=== PATIENT | male | born 1975 | race Caucasian/White ===

== ENCOUNTER 2018-05-07 11:15 | Outpatient (CLI) | payer SELFPAY ==
--- NOTE | 2018-05-07 08:57 | DI.RAD_ITS ---
SYMPTOM/DIAGNOSIS: LT SHOULDER PAIN, M25.512 LEFT SHOULDER: Five views. No bone or joint abnormality is identified. The soft tissues are grossly unremarkable. IMPRESSION: No acute abnormality.
== END 2018-05-07 11:35 ==
PROVIDERS: PCP Family Medicine; Visit Provider Family Medicine
DX: M25.512 Pain in left shoulder (principal)
CPT/HCPCS: 73030

== ENCOUNTER 2019-04-08 13:20 | Outpatient (CLI) | payer OTHER, SELFPAY ==
[2019-04-08 15:12] LABS: Anion Gap 11.9 mmol/L (3-11); BUN 18 mg/dL (7-18); CO2 27.1 mmol/L (21.0-32.0); CREATININE 0.95 mg/dL (0.70-1.30); Calcium 9.3 mg/dL (8.5-10.1); Chloride 102 mmol/L (98-107); Glucose 128 mg/dL (74-106); Potassium 4.3 mmol/L (3.5-5.1); Sodium 141 mmol/L (136-145)
== END 2019-04-08 13:40 ==
PROVIDERS: PCP Family Medicine; Visit Provider Emergency Medicine
DX: I10 Essential (primary) hypertension (principal)
CPT/HCPCS: 36415; 80048

== ENCOUNTER 2019-04-27 08:43 | Day surgery (SDC) | payer OTHER, SELFPAY ==
[2019-04-27 08:59] VITALS: BP 141/93; PULSE 77; RESP 18; TEMP 36.2; O2SAT 98
[2019-04-27] MEDS: Lactated Ringers 1,000 ML 80 ML IV (09:20)
[2019-04-27] MEDS: ceFAZolin 2 GM/50 ML BAG IVPB (10:04)
[2019-04-27] MEDS: Lidocaine 1% Multi-Dose 50 ML VIAL (10:12)
[2019-04-27] MEDS: Sodium Bicarbonate 50 MEQ/50 ML VIAL (10:12)
--- NOTE | 2019-04-27 10:33 | PDOC.DSDIS_ITS ---
Discharge Plan Disposition Patient Disposition: HOME Condition: Good Discharge Details Reason For Visit: Left ECTR Attending Provider: Cornell Kyle Primary Care Provider: Ching Cat Home Meds and New Rx's Prescriptions: New ibuprofen 600 mg tablet 600 mg PO TID PRNQty: 30 RF: 0 acetaminophen 500 mg capsule 500 mg PO Q4H PRN (Reason: pain) Qty: 30 RF: 0 Continued lisinopril 20 mg tablet 30 mg PO DAILY Qty: 90 RF: 3 doxycycline monohydrate 100 mg capsule 100 mg PO BID Qty: 60 RF: 3 sertraline 100 mg Tablet 100 mg PO DAILY RF: 0 Discharge Instructions Stand Alone Forms: Anabella Douglas Tunnel Release Referrals: Cornell Kyle MD [ [facility] STAFF PHYSICIAN] - Activity:: Activity as Tolerated Remove Dressings/Wound Care:: 48 hours Shower/Bathe:: 48 hours Diet:: As Tolerated Discharge Orders Discharge Orders: Discharge Order (Routine); Ordered 04/27/19 Ordered By: Benson Allen DS: Diagnosis Discharge Diagnosis (1) Left carpal tunnel syndrome: Status: Acute
[2019-04-27 11:05] VITALS: BP 127/85; PULSE 61; RESP 16; TEMP 36.3; O2SAT 97
--- NOTE | 2019-04-28 07:21 | W.PM.OP ---
Date of service: 04/27/19 Time of Service: 13:22 Operative Note Operative Note DATE OF PROCEDURE: 04/27/19 PRE-OP DIAGNOSIS: Left carpal tunnel syndrome POST-OP DIAGNOSIS: same PROCEDURE: Left Endoscopic Carpal Tunnel Release SURGEON: Cornell Kyle ANESTHESIA: GETDebbie ESTIMATED BLOOD LOSS: 0 PATHOLOGY: none sent TOURNIQUET TIME: 12 COMPLICATIONS: None Patient was transported to: same day Patient's condition: stable Indications: I have seen Philippe in clinic for symptoms of carpal tunnel syndrome. The numbness, tingling, and pain limited function. Clinical exam findings with nerve conduction tests confirmed the diagnosis of carpal tunnel syndrome. Nonoperative measures such as bracing, time, activity modifications had been tried but disability and pain persisted. I discussed carpal tunnel release with the patient. He previously had a release on the right side and did well from this. I reviewed the risks of the procedure to include, but not limited to, bleeding, infection, pain, stiffness, incomplete release, damage to nerves or vessels, persistent numbness, recurrence. Despite these risks, the patient elected to proceed. Findings: There was tightened carpal tunnel. There was significant synovium which was encountered during the carpal tunnel release. This was dilated and released successfully with the endoscopic with increased space within the tunnel. The antebrachial fascia was released proximally freeing the median nerve at the wrist. Procedure Description: Philippe was greeted in the preoperative holding area where the correct side was identified and marked. The consent was reviewed with the patient and signed. The history and physical was updated. All questions were answered. Philippe was taken back to the operating room. The patient was placed into the supine position on the operating room table with the left arm on an arm board. A nonsterile tourniquet was placed high onto the arm. All bony prominences were well padded. Prophylactic antibiotics in the form of cefazolin were administered. The left arm was then prepped with Chloraprep and draped in a standard fashion with stockinette and extremity drape. A timeout to confirm correct identity, side and site, procedure, allergies, anesthesia, and medical concerns was performed. The surgical site was marked in the volar wrist creases in line with the radial border of the fourth ray. This area was anesthetized with approximately 6cc of 1% Lidocaine. The limb was then exsanguinated with an Esmarch. The skin was incised with a 15 blade, approximately 1cm. The skin only was cut and the deeper tissue was dissected bluntly with a tenotomy scissor, avoiding passing nerve and venous structures. The fascia was penetrated and opened bluntly. A two-prong skin hook was placed under this proximal fascial edge. A series of hamate finders were used to identify and dilate the carpal tunnel. Synovial elevator was used to free synovial attachments to the underside of the transverse carpal ligament. My thumb was kept in the palm to tiffany the distal extent of the carpal tunnel and correctly position the hand. The Microaire endoscope was inserted without difficulty and without resistance. Excellent visualization showed horizontally running fibers of the transverse carpal ligament (TCL). The distal extent of the TCL was visualized and the end of the scope palpated with the thumb. The blade was elevated and withdrawn from distal to proximal. The TCL was split into two flaps. The endoscope was reinserted to confirm complete release and any remnant ligament was incised. The scope was withdrawn and the proximal aspect of the carpal tunnel was grossly inspected and appeared release with the median nerve visible. The antebrachial fascia at the level of the wrist was then freed from the overlying skin and then the underlying median nerve with blunt dissection. This was transected longitudinally for about 3cm proximal to the wrist incision. The wound was then irrigated with easy flow of irrigant distally and proximally. The incision was closed with a single 4-0 Nylon suture. The wound was dressed with Xeroform, Gauze, Kerlix and Adelfo. The tourniquet was deflated with the initial dressing and held with some pressure. Blood flow returned easily to all digits with capillary refill less than 2 seconds. The patient tolerated the procedure well and was returned to the Same Day Surgery area in a stable condition suffering no known complication.
== END 2019-04-27 11:43 | disposition home or self-care (01) ==
PROVIDERS: PCP Family Medicine; Visit Provider Student in an Organized Health Care Education/Training Program
PROC: 01N54ZZ Release Median Nerve, Percutaneous Endoscopic Approach (ICD-10-PCS; CPT 29848; principal; 2019-04-27 11:15)
DX: G56.02 Carpal tunnel syndrome, left upper limb (principal)
CPT/HCPCS: 29848; J0690; J1885; J2704

== ENCOUNTER 2019-06-11 10:15 | Day surgery (SDC) | payer OTHER, SELFPAY ==
[2019-06-11 10:30] VITALS: BP 137/93; PULSE 70; RESP 18; TEMP 36.3; O2SAT 98
[2019-06-11] MEDS: Lactated Ringers 1,000 ML 80 ML IV ×2 (10:55→12:43)
[2019-06-11] MEDS: ceFAZolin 2 GM/50 ML BAG IVPB (12:11)
--- NOTE | 2019-06-11 12:14 | PDOC.DSDIS_ITS ---
Discharge Plan Disposition Patient Disposition: HOME Condition: Good Discharge Details Reason For Visit: Left Carpal tunnel Syndrome Attending Provider: Cornell Kyle Primary Care Provider: Ching Cat Home Meds and New Rx's Prescriptions: Continued ibuprofen 600 mg tablet 600 mg PO TID PRNQty: 30 RF: 0 acetaminophen 500 mg capsule 500 mg PO Q4H PRN (Reason: pain) Qty: 30 RF: 0 Discontinued naproxen 500 mg Tablet 500 mg PO PRN PRNRF: 0 No Action sertraline 100 mg tablet 150 mg PO DAILY RF: 0 doxycycline monohydrate 100 mg capsule 100 mg PO BID Qty: 60 RF: 3 lisinopril 20 mg tablet 30 mg PO DAILY Qty: 90 RF: 5 Discharge Instructions Additional Instructions: Activity: You should keep the hand/wrist elevated as much as possible for the fi rst few days. You may use the other fingers as tolerated but avoid trying to do too much too soon. You may perform light activities with the splint in place. Dressing/Cast: Your splint should stay in place most of the time. You may remove the dressings after 3 days and replace with bandaids or a light gauze. The wound may get wet after 3 days. Medications: - You should take Tylenol and Ibuprofen for baseline pain control. - You may apply ice over the wrist, just double bag so it doesn't get wet. Follow-up: 7-10 days Referrals: Cornell Kyle MD [ [facility] STAFF PHYSICIAN] - Equipment/Supplies: Splint and Sling Activity:: Elevate Remove Dressings/Wound Care:: 72 hours Shower/Bathe:: 72 hours Diet:: As Tolerated Discharge Orders Discharge Orders: Discharge Order (Routine); Ordered 06/11/19 Ordered By: Cornell Kyle DS: Diagnosis Discharge Diagnosis (1) Left carpal tunnel syndrome: Status: Acute
[2019-06-11] MEDS: Lidocaine 2% Multi-Dose 50 ML VIAL (12:29)
[2019-06-11 13:50] VITALS: BP 120/75; PULSE 62; RESP 16; TEMP 36; O2SAT 99
--- NOTE | 2019-06-12 07:33 | ROE_ITS ---
Date of service: 06/11/19 Time of Service: 13:33 Operative Note Operative Note DATE OF PROCEDURE: 06/11/19 PRE-OP DIAGNOSIS: Left Carpal Tunnel Syndrome POST-OP DIAGNOSIS: same PROCEDURE: Left Open Carpal Tunnel Release SURGEON: Cornell Kyle ANESTHESIA: GETDebbie ESTIMATED BLOOD LOSS: 0 PATHOLOGY: none sent TOURNIQUET TIME: 30 COMPLICATIONS: None Patient was transported to: same day Patient's condition: stable Indications: I have seen Philippe in clinic for symptoms of carpal tunnel syndrome. Eventually, after failing conservative options, he underwent an endoscopic carpal tunnel release. There was some notable synovitis but no suspicion of issues with the initial surgery. However, Philippe continue to have painful numbness and tingling, especially of the middle and radial ring finger. The numbness, tingling, and pain limited function. Nonoperative measures such as bracing, time, activity modifications had been tried but disability and pain persisted. I discussed revision carpal tunnel release with the patient. I would do this in an open fashion. I reviewed the risks of the procedure to include, but not limited to, bleeding, infection, pain, stiffness, incomplete release, damage to nerves or vessels, persistent numbness, recurrence. Despite these risks, the patient elected to proceed. Findings: There was tightened carpal tunnel. A portion of the proximal, ulnar aspect was previously released and there also appear to be release of Guyon's canal. The carpal tunnel was incised through his entire length. The median nerve was inspected and was shown to be without injury. Procedure Description: Philippe was greeted in the preoperative holding area where the correct side was identified and marked. The consent was reviewed with the patient and signed. The history and physical was updated. All questions were answered. Philippe was taken back to the operating room. The patient was placed into the supine position on the operating room table with the left arm on an arm board. A nonsterile tourniquet was placed high onto the arm. All bony prominences were well padded. Prophylactic antibiotics in the form of cefazolin were administered. The left arm was then prepped with Chloraprep and draped in a standard fashion with stockinette and extremity drape. A timeout to confirm correct identity, side and site, procedure, allergies, anesthesia, and medical concerns was performed. The surgical site was marked in line with the radial border of the fourth ray. This area was anesthetized with approximately 10cc of 1% Lidocaine. The limb was then exsanguinated with an Esmarch. The skin was incised with a 15 blade, approximately 1cm. The skin only was cut and the deeper tissue was dissected bluntly with a tenotomy scissor, avoiding passing nerve and venous structures. Blunt dissection was carried deep. There was a notable neurovascular bundle present which appear to be the ulnar neurovascular bundle. The roof of the has apparently been released. With this retracted ulnarly out of the way, the transcarpal ligament was visible. It was notably thickened. There also appear to be some release of the ulnar, proximal aspect. A [place] elevator was then placed underneath the transverse carpal ligament and the transverse carpal it was incised. It was quite thickened. The median nerve was also adherent to the underside. This incision was carried along the ulnar most border of the transverse carpal ligament against the hook of the hamate. It was incised completely and inspected for any other attachments. The median nerve was adherent to the underside of the transcarpal ligament through notable synovitis. This was resected and the median nerve was inspected. There is no notable nerve damage appreciated. The tourniquet was then released. Blood flow returned easily to all digits with capillary refill less than 2 seconds. There is no notable arterial or vascular injury. The patient tolerated the procedure well and was returned to the Same Day Surgery area in a stable condition suffering no known complication.
== END 2019-06-11 14:20 | disposition home or self-care (01) ==
PROVIDERS: PCP Family Medicine; Visit Provider Student in an Organized Health Care Education/Training Program
PROC: (CPT 64721; principal; 2019-06-11 12:00)
DX: G56.02 Carpal tunnel syndrome, left upper limb (principal)
CPT/HCPCS: 64721; J0690; J1885; J2001; J2704; L3650; L3908

== ENCOUNTER 2019-09-02 01:53 | Outpatient (CLI) | payer OTHER, SELFPAY ==
[2019-09-02 17:56] LABS: Anion Gap 10.5 mmol/L (3-11); BUN 22 mg/dL (7-18); CO2 24.5 mmol/L (21.0-32.0); CREATININE 1.23 mg/dL (0.70-1.30); Chloride 104 mmol/L (98-107); Glucose 127 mg/dL (74-106); Potassium 4.1 mmol/L (3.5-5.1); Sodium 139 mmol/L (136-145)
[2019-09-09 12:21] LABS: Testosterone, Free 7.67 ng/dL (4.46-17.1); Testosterone, Total 274 ng/dL (240-950)
== END 2019-09-02 02:13 ==
PROVIDERS: PCP Family Medicine; Visit Provider Emergency Medicine
DX: E03.9 Hypothyroidism, unspecified (principal); I10 Essential (primary) hypertension; R37 Sexual dysfunction, unspecified
CPT/HCPCS: 36415; 80048; 84402; 84403; 84443

== ENCOUNTER 2019-10-09 12:59 | Emergency (ER) | payer OTHER, SELFPAY ==
[2019-10-09 13:05] VITALS: BP 128/85; PULSE 81; RESP 16; TEMP 36.4; O2SAT 97
--- NOTE | 2019-10-09 14:10 | ED.GENADUL_ITS ---
Discharge Plan Disposition Patient Disposition: HOME Condition: Stable Discharge Details Chief Complaint: RashLesion Clinical Impression: Folliculitis Primary Care Provider: Ching Cat ED Provider: Eryn Malhotra Home Meds and New Rx's Prescriptions: New clindamycin HCl 300 mg capsule 300 mg PO TID Qty: 30 RF: 0 chlorhexidine gluconate 2 % liquid 1 applic TP ONCE Qty: 118 RF: 0 Discontinued doxycycline monohydrate 100 mg capsule 100 mg PO BID Qty: 60 RF: 3 No Action ibuprofen 600 mg tablet 600 mg PO TID PRNQty: 30 RF: 0 acetaminophen 500 mg capsule 500 mg PO Q4H PRN (Reason: pain) Qty: 30 RF: 0 citalopram 20 mg Tablet 20 mg PO DAILY RF: 0 lisinopril 20 mg tablet 20 mg PO DAILY RF: 0 Discharge Instructions Instructions: Folliculitis (ED) Additional Instructions: Wash area with provided soap once daily for the next 2 weeks. Use oral antibiotic as prescribed. Stop previously prescribed doxycycline. If he develop any diarrhea while taking this antibiotic please let your primary care doctor know or return to the emergency room. Rest activities as tolerated. Recheck with PCP by the end of course of your antibiotics. Wound culture pending. This will result in the next 3 to 5 days and can help tailor your antibiotic courses. Return for any worsening, concerns or alarming symptoms sooner if needed Discharge Data Discharge Date/Time-TO BE ENTERED AT DEPARTURE: 10/09/19 14:26 Medical Decision Making This is a 43-year-old gentleman presenting the emergency room for rash she has experienced for several years. Patient has seen PCP who is provide him a standing prescription for doxycycline for rash which she experiences to the scalp, neck and car. Patient reports this is worse than typical as he has been trying to avoid treating it as he does work in the sun in construction and has difficulty taking doxycycline with sun exposure due to burning. Patient does report he began taking doxycycline last evening as his rash is worsening in the last week or 2. Patient denies any systemic symptoms. Patient has a rash consistent with folliculitis of the scalp neck and car chin area as he does have pustular lesion through this area diffusely. Spares areas without hair. 1 of the lesions was deroofed and culture was obtained. Patient has nothing to indicate a focal abscess requiring incision and drainage at this time. Again patient is not systemically ill. We discussed use of antibiotics in need to reevaluate with his primary care doctor. Patient is having some difficulty using doxycycline due to sun exposure in his work. Consider changing to Bactrim although patient does take lisinopril which medications do interact therefore clindamycin will be prescribed for broad-spectrum coverage including MRSA. Cautioned regarding the possibility of antibiotic induced diarrhea. Culture to be followed up with PCP. Chlorhexidine wash also provided recommended he wash once daily for the next 2 weeks. Patient agrees with this plan of care. The patient was stable and requested discharge. Prior to discharge, my usual and customary return precautions were reviewed with the patient - this included follow-up instructions and reasons to return to the Emergency Department if conditions worsens, does not improve as expected, or other new concerns arise. HPI General Date/Time Provider Initiated Documentation: 10/09/19 13:57 . HPI Narrative: This is a 43-year-old patient presenting the emergency room for complaints of rash. Patient reports onset of rash to his scalp worsening in the last 5 days. Patient notes scalp lesions, neck lesions and lesions through the car hair. Patient reports intermittent episodes of this for several years. Patient does have a standing prescription for doxycycline. Patient reports doxycycline has been less effective recently when taking it. He reports beginning doxycycline last night. Patient denies fever, chills or systemic symptoms. Patient also having difficulty using doxycycline as he works construction and is frequently exposed to the sun. Patient seeking reevaluation for rash on his scalp and neck which has been worsening over the last several days. Patient reports rash is painful. Patient denies any fever, chills, nausea, vomiting, cough, difficulty breathing with shortness of breath, muscle aches, change in taste or smell. Related Data Home Medications Medication Instructions Recorded Confirmed acetaminophen 500 mg PO Q4H PRN #30 cap 06/11/19 10/09/19 ibuprofen 600 mg PO TID PRN #30 tab 06/11/19 10/09/19 chlorhexidine gluconate 1 applic TP ONCE #118 ml 10/09/19 citalopram 20 mg PO DAILY 10/09/19 10/09/19 clindamycin HCl 300 mg PO TID #30 cap 10/09/19 lisinopril 20 mg PO DAILY 06/20/20 06/20/20 Previous Rx's Medication Instructions Recorded acetaminophen 500 mg PO Q4H PRN #30 cap 06/11/19 ibuprofen 600 mg PO TID PRN #30 tab 06/11/19 chlorhexidine gluconate 1 applic TP ONCE #118 ml 10/09/19 clindamycin HCl 300 mg PO TID #30 cap 10/09/19 Allergies Allergy/AdvReac Type Severity Reaction Status Date / Time bupropion [From Wellbutrin] AdvReac Intermediate headache Verified 06/21/19 08:55 nausea oxycodone AdvReac Intermediate NAUSEA/VOMI Verified 06/21/19 08:55 TING OPIATE AGONISTS (NARCOTICS) AdvReac Intermediate NAUSEA/VOMI Uncoded 06/21/19 08:55 TING General Stated Complaint: RashLesion RENEE: 4 Review of Systems All systems reviewed & are unremarkable except as noted in HPI and below PFSH Medical History Adult acne (Acute) Depression Hypertension Sexual dysfunction (Acute) Surgical History (Updated 06/21/19 @ 09:26 by LESLEY Germain) KNEE SURGERY 1994- [facility], left Left carpal tunnel syndrome (Acute) s/p ECTR: 04/27/2019 s/p OCTR: 06/11/2019 Social History Smoking/Tobacco Use Status: Never Alcohol Intake: never Drug use: Never Substance use type: does not use Current gender identity: male Do you feel safe at home: Yes Do you feel safe in your relationship?: Yes Exam Narrative Exam Narrative: CONST: Healthy appearing patient, in no acute distress. Well hydrated. Alert and oriented. HENMT: Head nomocephalic, normal to inspection. Atraumatic. Hearing grossly normal. Patient has a pustular appearing scattered rash with no focal abscesses throughout the lateral and posterior scalp, spares forehead and a area of balding scalp superiorly. Rash does extend to the neck posteriorly and involves hair follicles within his car and chin. Again no focal abscess. Consistent with folliculitis. Erythema of the skin surrounding without obvious cellulitis. Tender with palpation. EYES: General normal appearance. Alignment normal. Eyelids normal. Conjunctiva normal. NECK: Normal visual inspection. FROM. Trachea midline. No Midline tenderness. CHEST: Normal insepection of the chest. RESP: Normal respiratory effort. Speaking full sentences. No cough. No audible wheezing. No retractions. CARDIO: No JVD. MUSCULOSKELETAL: Normal Gait. FROM of all extremities. SKIN: Normal. Dry. No rashes. See description of head, neck and scalp, consistent with pustular folliculitis. NEURO: Alert and awake. Speech clear. PSYCH: Normal affect. Cooperative. Course Vital Signs Vital signs: Vital Signs Temperature 36.4 C L 10/09/19 13:05 Pulse 81 10/09/19 13:05 Respiratory Rate 16 10/09/19 13:05 Blood Pressure 128/85 10/09/19 13:05 Pulse Oximetry 97 10/09/19 13:05 Temperature 36.4 C L 10/09/19 13:05 Temperature Source Skin 10/09/19 13:05 Pulse 81 10/09/19 13:05 Respiratory Rate 16 10/09/19 13:05 Respiratory Effort Non-Labored 10/09/19 13:08 Blood Pressure 128/85 10/09/19 13:05 Blood Pressure Position Sitting 10/09/19 13:05 Pulse Oximetry 97 10/09/19 13:05 Oxygen Delivery Method Room Air 10/09/19 13:05 Oxygen Flow Rate 0 10/09/19 13:05 Pain Level 7 10/09/19 13:05 Lab/Test Results Lab/Test Results: 10/09/19 14:00 Neck - Not Specified Wound Culture - Pending 10/09/19 14:00 Neck - Not Specified Gram Stain - Pending
== END 2019-10-09 14:26 | disposition home or self-care (01) ==
PROVIDERS: Emergency Provider Physician Assistant; PCP Family Medicine
DX: L73.8 Other specified follicular disorders (principal); I10 Essential (primary) hypertension
CPT/HCPCS: 99283; 87070; 87205

== ENCOUNTER 2020-02-22 08:45 | Outpatient (CLI) | payer OTHER, SELFPAY ==
[2020-02-25 12:31] LABS: Patient Race White; SARS-CoV-2 RNA Undetected (Undetected); SARS-CoV-2 Specimen Source Nasal
== END 2020-02-22 09:05 ==
PROVIDERS: PCP Family Medicine; Visit Provider Emergency Medicine
DX: Z11.59 Encounter for screening for other viral diseases (principal)
CPT/HCPCS: U0003

== ENCOUNTER 2020-03-28 17:51 | Emergency (ER) | payer OTHER, SELFPAY ==
[2020-03-28 17:59] VITALS: BP 130/88; PULSE 78; RESP 18; TEMP 36.7; O2SAT 98
--- NOTE | 2020-03-28 18:08 | W.ED.GENAD ---
Discharge Plan Disposition Patient Disposition: HOME Condition: Stable Discharge Details Clinical Impression: Chemosis of right conjunctiva Primary Care Provider: Ching Cat ED Provider: Michell Peoples Home Meds and New Rx's Prescriptions: Continued doxycycline monohydrate 100 mg tablet 100 mg PO BID Qty: 14 RF: 0 citalopram 20 mg tablet 30 mg PO DAILY Qty: 135 RF: 4 ibuprofen 600 mg tablet 600 mg PO TID PRNQty: 30 RF: 0 acetaminophen 500 mg capsule 500 mg PO Q4H PRN (Reason: pain) Qty: 30 RF: 0 lisinopril 20 mg tablet 20 mg PO DAILY RF: 0 clindamycin HCl 300 mg capsule 300 mg PO TID Qty: 30 RF: 0 chlorhexidine gluconate 2 % liquid 1 applic TP ONCE Qty: 118 RF: 0 Discharge Instructions Instructions: Eye Foreign Body (ED), Conjunctivitis (ED) Additional Instructions: You appear to have chemosis (conjunctival swelling) of your right eye. I suspect this is a reaction to possibly sawdust. Main treatment for this includes irrigation. You can also try Benadryl as needed and directed for itching. You can also apply cool compresses to your right eye. You have been placed on care management list to arrange for a follow-up appointment with [facility] tomorrow. You can also call [facility] care in [facility] tomorrow at [phone] to ensure that this appointment is arranged for tomorrow. Apply 1/2 inch ribbon of erythromycin to your right eye 4 times daily for the next 5 days. Alternate tylenol and motrin as needed and directed for pain. Return immediately to the emergency department if you develop any worsening or new concerning symptoms. Discharge Data Discharge Date/Time-TO BE ENTERED AT DEPARTURE: 03/28/20 19:40 Discharge Physician: Michell Peoples Medical Decision Making 44-year-old male presents with right eye pain and swelling that started upon awakening 1 hour prior to arrival. He was working with sawdust today while building a house without wearing goggles with protective eyewear. He admits to blurry vision and sensation of swelling but denies any significant pain or foreign body sensation. He states he did wash his face just prior to falling asleep today and feels that there was fine particles of dust on his face. He was unaware of getting any foreign bodies in his eye but when he awoke 1 hour later he had significant swelling within his eye and below his eye. He does not wear contacts or glasses. Visual acuity on arrival 20/70 on right and 20/20 on left. He has significant conjunctival swelling and infraorbital edema. Presentation consistent with chemosis likely due to allergic reaction or inflammation I suspect is due to sawdust or possible reaction to the barn board. Case was discussed with poison control who had recommended flushing the eye and agreed with plan for topical antibiotics. No other acute recommendations at this time. [place]ura lamp exam with fluorescein staining no obvious foreign body but limited with conjunctival edema. Slit lamp exam noted a questionable speck foreign body (vs bubble?) at 12:00 but this was not visible from all angles and may be due to swelling. Do not see any ability to remove this foreign body at this time and unsure if this is even a foreign body. Attempted irrigating with normal saline with Vazquez lens and patient was only able to tolerate 200 cc of normal saline. Also flushed with balanced salt solution. There was some improvement of swelling but patient could not tolerate any more irrigation. His tetanus is up-to-date 2013. Patient was placed on care management list for a follow-up appointment with [facility] tomorrow for further evaluation. Erythromycin ointment applied to right eye. Usual and customary return precautions given prior to discharge. Medical Records Medical records reviewed: Yes I reviewed the patient's medical records. HPI General Mode of arrival: ambulatory. Date/Time Provider Initiated Documentation: 03/28/20 18:00. Limitations to Documentation: no limitations. Information obtained by: patient. HPI Narrative: Patient is a 44-year-old male who presents with right eye irritation and swelling that occurred after he awoke from a nap 1 hour ago. He denies any significant pain or foreign body sensation and states his discomfort is more from swelling. Patient states he was working at his home which he is building and was working with sawdust. Patient states he was not wearing goggles or glasses while working. Patient states he was working with barn boards that were at least 100 years old but he is unsure if they were covered any chemicals. Patient states he washed his face down with water prior to laying down and then when he awoke he noted significant swelling within and under his right eye. He states he thinks he had small particles of sawdust on his face before he washed it down with water. Patient admits to blurry vision which she thinks is due to the swelling. He denies any headache, dizziness, eye discharge. He states he does not wear glasses or contacts. Related Data Home Medications Medication Instructions Recorded Confirmed acetaminophen 500 mg PO Q4H PRN #30 cap 06/11/19 10/19/19 ibuprofen 600 mg PO TID PRN #30 tab 06/11/19 10/19/19 chlorhexidine gluconate 1 applic TP ONCE #118 ml 10/09/19 10/19/19 clindamycin HCl 300 mg PO TID #30 cap 10/09/19 10/19/19 lisinopril 20 mg PO DAILY 10/09/19 10/19/19 doxycycline monohydrate 100 mg 100 mg PO BID #14 tab 11/24/19 tablet citalopram 20 mg tablet 30 mg PO DAILY #135 tab 03/09/20 Previous Rx's Medication Instructions Recorded acetaminophen 500 mg PO Q4H PRN #30 cap 06/11/19 ibuprofen 600 mg PO TID PRN #30 tab 06/11/19 chlorhexidine gluconate 1 applic TP ONCE #118 ml 10/09/19 clindamycin HCl 300 mg PO TID #30 cap 10/09/19 doxycycline monohydrate 100 mg 100 mg PO BID #14 tab 11/24/19 tablet citalopram 20 mg tablet 30 mg PO DAILY #135 tab 03/09/20 Allergies Allergy/AdvReac Type Severity Reaction Status Date / Time bupropion [From Wellbutrin] AdvReac Intermediate headache Verified 10/19/19 14:55 nausea oxycodone AdvReac Intermediate NAUSEA/VOMI Verified 10/19/19 14:55 TING OPIATE AGONISTS (NARCOTICS) AdvReac Intermediate NAUSEA/VOMI Uncoded 10/19/19 14:55 TING General Stated Complaint: EyeProblem RENEE: 4 Review of Systems All systems reviewed & are unremarkable except as noted in HPI and below Constitutional Constitutional: Reports as per HPI, Denies chills and Denies fever(s) Eyes Eyes: Denies blurry vision ENT Ears, Nose, Mouth, and Throat: Denies dizziness, Denies sore throat and Denies throat swelling Cardiovascular Cardiovascular: Denies chest pain and Denies dyspnea Respiratory Respiratory: Denies cough and Denies dyspnea Gastrointestinal Gastrointestinal: Denies abdominal pain, Denies diarrhea and Denies vomiting Genitourinary Genitourinary: Denies hematuria and Denies dysuria Musculoskeletal Musculoskeletal: Denies back pain and Denies numbness Integumentary/Breasts Skin/Breast: Denies lesions and Denies rash Neurologic Neurologic: Denies dizziness, Denies localized weakness and Denies numbness Allergic/Immunologic Allergic/Immunologic: Denies throat swelling [facility] Medical History (Updated 03/28/20 @ 19:10 by Michell Peoples DO) Adult acne Depression Hypertension Sexual dysfunction Surgical History (Updated 06/21/19 @ 09:26 by LESLEY Germain) KNEE SURGERY 1994- [facility], left Left carpal tunnel syndrome s/p ECTR: 04/27/2019 s/p OCTR: 06/11/2019 Family History Mother No problems noted. Father Essential hypertension Depression Family History Neoplasm Social History Smoking/Tobacco Use Status: Never Smoking risk assessment performed?: Yes Alcohol Intake: never Drug use: Never Substance use type: does not use Current gender identity: male Do you feel safe at home: Yes Do you feel safe in your relationship?: Yes Exam Const General: cooperative, healthy appearing and no acute distress [facility] Head: normal to inspection Ears: hearing grossly normal bilaterally and external ears normal General nose exam: external nose normal Mouth: oral mucosae normal Eyes General: appearance normal, both eyes and all related structures Conjunctivae: conjunctival abnormality right conjunctival chemosis and conjunctival injection; without discharge and without subconjunctival hemmorhages Pupils: PERRL EOM: EOM intact bilaterally Eyes/upper lids images: 1. Moderate infraorbital edema. No erythema, crepitus, ecchymoses, drainage or bleeding. Neck Neck: normal visual inspection Resp Effort & Inspection: normal respiratory effort and able to speak in complete sentences Cardio Rate: regular rate Skin General skin exam: no rashes or lesions noted Neuro General: patient alert, patient awake and patient oriented x3 Motor: muscle tone normal throughout Extrem General: normal to inspection and full ROM Psych Appearance: grossly normal Affect: normal affect Course Vital Signs Vital signs: Vital Signs Temperature 98.1 F 03/28/20 17:59 Pulse 78 03/28/20 17:59 Respiratory Rate 18 03/28/20 17:59 Blood Pressure 130/88 03/28/20 17:59 Pulse Oximetry 98 03/28/20 17:59 Temperature 98.1 F 03/28/20 17:59 Temperature Source Temporal Artery Scan 03/28/20 17:59 Pulse 78 03/28/20 17:59 Respiratory Rate 18 03/28/20 17:59 Respiratory Effort Non-Labored 03/28/20 18:03 Blood Pressure 130/88 03/28/20 17:59 Blood Pressure Position Sitting 03/28/20 17:59 Pulse Oximetry 98 03/28/20 17:59 Oxygen Delivery Method Room Air 03/28/20 17:59 Oxygen Flow Rate 0 03/28/20 17:59 Pain Level 6 03/28/20 17:59
[2020-03-28] MEDS: Tetracaine 0.5% 4 ML BTL (18:09)
[2020-03-28] MEDS: Fluorescein STRIPS 100/BOX 1 MG (18:25)
[2020-03-28] MEDS: Balanced Salt Solution 15 ML BTL (18:25)
--- NOTE | 2020-03-28 19:10 | NUR.NOTE ---
Nursing Note: caremangement to make appointment with karina
[2020-03-28] MEDS: Erythromycin Ophth Oint 3.5 GM TUBE OU (19:36)
--- NOTE | 2020-03-29 10:09 | PDOC.ERCMPRO ---
- If Service Date Differs Date of service: 03/29/20 Time of Service: 10:10 Care Management Progress Note CM was requested to call [facility] [place] [facility] to set up immediate follow up for Philippe, as he presented to the ED with Chemosis. TUNDE called [facility] in the morning, but the patient had already contacted them, and was on their schedule today to be seen at 10am.
== END 2020-03-28 19:40 | disposition home or self-care (01) ==
LOC: ER 19:35
PROVIDERS: Emergency Provider Physician Assistant; PCP Family Medicine
DX: H11.421 Conjunctival edema, right eye (principal)
CPT/HCPCS: 99284; 99283

== ENCOUNTER 2020-07-10 03:17 | Outpatient (CLI) | payer OTHER, SELFPAY ==
[2020-07-11 14:30] LABS: COVID-19 RT-PCR UVMMC Result Negative (Negative)
== END 2020-07-10 03:18 | disposition home or self-care (01) ==
LOC: LBO 03:17
PROVIDERS: PCP Family Medicine; Visit Provider Family Medicine
DX: Z20.822 Contact with and (suspected) exposure to COVID-19 (principal)
CPT/HCPCS: U0003

== ENCOUNTER 2021-04-24 23:30 | Emergency (ER) | payer OTHER, SELFPAY ==
--- NOTE | 2021-04-24 23:30 | DI.CT_ITS ---
Exam(s) CT HEAD WO EXAM: CT HEAD WO CLINICAL HISTORY: ams. TECHNIQUE: Imaging Protocol: Axial computed tomography images with coronal and sagittal reformatted images were created and reviewed COMPARISON: No exams were available for comparison FINDINGS: The ventricular system is normal in appearance. No evidence of acute intracranial hemorrhage, mass effect, or midline shift. The orbital structures are unremarkable. The temporal bone structures appear intact. Calvarium: Normal. Visualized Paranasal sinuses/Mastoids: Clear. IMPRESSION: Normal cranial CT. RADIATION DOSE DELIVERED: 834.22mGy.cm Total DLP 834.22mGy.cm Total DLP 38.96mGy CTDIvol DATA REPOSITORY: All CT scans at this facility are submitted to the National Radiology Data Registry (NRDR) Dose Index Registry (DIR) with the [employer] ([employer]). RADIATION OPTIMIZATION: All CT scans at this facility use at least one of these dose optimization te chniques: automated exposure control; mA and/or kV adjustment per patient size (includes targeted exa ms where dose is matched to clinical indication); or iterative reconstruction.
--- NOTE | 2021-04-24 23:30 | RT.EKG_ITS ---
APPROVED REPORT Exam: Resting ECG Reason for Exam: chest pain Patient Location: E HR:93 bpm ECG Measurements Heart Rate 93 AXIS MA 145 P 42 QRSd 83 QRS 27 QT 334 T -82 QTc 416 Conclusion Sinus rhythm...normal P axis, V-rate 60- 99 Probable left atrial enlargement...P >50mS, <-0.10mV V1
[2021-04-24 23:35] VITALS: BP 153/98; PULSE 97; RESP 17; TEMP 37.2; O2SAT 98
[2021-04-24 23:44] VITALS: RESP 18
--- NOTE | 2021-04-24 23:44 | ED.GENADUL_ITS ---
Discharge Plan Disposition Patient Disposition: HOME Condition: Stable Discharge Details Clinical Impression: Altered mental status, Dehydration Primary Care Provider: Trey Dodge ED Provider: Rajendra March Home Meds and New Rx's Prescriptions: Continued omeprazole magnesium 20 mg tablet,delayed release (DR/EC) 20 mg PO DAILY Qty: 90 RF: 4 lisinopril 30 mg tablet 30 mg PO DAILY Qty: 90 RF: 4 citalopram 40 mg tablet 40 mg PO DAILY Qty: 90 RF: 3 ibuprofen 600 mg tablet 600 mg PO TID PRNQty: 30 RF: 0 Discharge Instructions Additional Instructions: your blood work showed evidence of dehydration and possible mild reaction to the vaccine follow up with your primary care provider within 1-2 weeks especially if symptoms continue make sure you drink fluids to stay hydrated if you feel more ill, have severe pain or difficulty breathing return to the emergency department Medical Decision Making 45 yo male with hx of anxiety, htn, who comes in with complaint of not feeling himself today and feeling foggy. He got his covid booster yesterday and woke up today feeling these symptoms. Significant other reports he was acting earlier as if he was drunk being more goofy than he normally is and not serious. Tonight he woke up was diaphoretic and felt anxious and asked her to bring him here. He arrives with a stable gait, caox4 and clear speech. No focal motor or sensation deficits, CN ii-xii intact, nih of 0 on exam. Denies alcohol or drug use. No chest pain, dyspnea fevers, chills, abdominal pain, rashes. Unclear etiology for his symptoms, could be reaction to the vaccine but will evaluate for electrolyte abnormality, and image his head to evaluate for possible hemorrhage though unlikely given no head pain and nih of 0 so doubt cva. Could also be anxiety, he states he is feeling better than he did at home and does feel anxious, declining acute medications for anxiety pt stable, labs remarkable for cpk of over 1000 and mild elevation in lfts which on literature review there has been cases of mild increase in lfts after covid vaccine as well as mild elevation in cpk. He has no abdominal tenderness at all in the ruq or anywhere so doubt cholecystitis or cholangitis and do not feel imaging of the abdomen indicated. He remains stable, will give IVF and repeat cpk delta troponin negative and cpk decreasing and he has urinated. HE has no symptoms now and feels better after IVF. Suspect symptoms were multifactorial from vaccine reaction and dehydration. He is stable for d/c, advised to f/u with pcp and return precautions given Differential Diagnosis Differential Diagnosis: electrolyte abnormality, anxiety, ich Medical Records Medical records reviewed: Yes I reviewed the patient's medical records. Imaging Data Radiologic Study: Attestation: I personally reviewed and interpreted this imaging study as follows: Imaging: CT Scan Radiologist's impression: no acute findings Lab Data Lab results reviewed: Yes I reviewed the patient's lab results. ECG Data Attestation: I personally reviewed and interpreted this ECG (s) as follows: Interpretation: sinus rhythm, rate of 93, pr 145 HPI General Mode of arrival: ambulatory . Date/Time Provider Initiated Documentation: 04/24/21 23:30 . Limitations to Documentation: no limitations . Information obtained by: patient . History of Present Illness 45 year old M presents to the emergency department with the chief complaint of not feeling himself, described as moderate, Patient started experiencing this day(s) (1) and it has been other (improving). No relieving factors improve symptom(s), No exacerbating factors reported . Patient did receive the following treatments prior to arrival, none Related Data Home Medications Medication Instructions Recorded Confirmed ibuprofen 600 mg PO TID PRN #30 tab 06/11/19 04/24/21 lisinopril 30 mg tablet 30 mg PO DAILY #90 tab 07/10/20 04/24/21 omeprazole magnesium 20 mg 20 mg PO DAILY #90 tab 09/20/20 04/24/21 tablet,delayed release citalopram 40 mg tablet 40 mg PO DAILY #90 tab 02/16/21 04/24/21 Previous Rx's Medication Instructions Recorded ibuprofen 600 mg PO TID PRN #30 tab 06/11/19 lisinopril 30 mg tablet 30 mg PO DAILY #90 tab 07/10/20 omeprazole magnesium 20 mg 20 mg PO DAILY #90 tab 09/20/20 tablet,delayed release citalopram 40 mg tablet 40 mg PO DAILY #90 tab 02/16/21 Allergies Allergy/AdvReac Type Severity Reaction Status Date / Time bupropion [From Wellbutrin] AdvReac Intermediate headache Verified 04/24/21 23:43 nausea oxycodone AdvReac Intermediate NAUSEA/VOMI Verified 04/24/21 23:43 TING OPIATE AGONISTS (NARCOTICS) AdvReac Intermediate NAUSEA/VOMI Uncoded 04/24/21 23:43 TING General Stated Complaint: AMS/LOC RENEE: 2 Review of Systems All systems reviewed & are unremarkable except as noted in HPI and below Constitutional Constitutional: Denies chills, Denies fever(s) and Denies weakness Cardiovascular Cardiovascular: Denies chest pain and Denies dyspnea Respiratory Respiratory: Denies cough and Denies dyspnea Gastrointestinal Gastrointestinal: Denies abdominal pain and Denies vomiting Musculoskeletal Musculoskeletal: Denies joint swelling Neurologic Neurologic: Denies weakness Psychiatric Psychiatric: Denies depression PFSH All Active Problems (Updated 04/25/21 @ 02:41 by Rajendra March MD) Altered mental status (Acute) Dehydration (Acute) COVID-19 (Acute) 02/2021- URI with loss of tast/smell-resolved, breakthrough infection Shoulder impingement syndrome (Acute) Hyperglycemia (Acute) Essential hypertension (Acute) Sexual dysfunction (Acute) Essential hypertension (Acute 02/18/13) Anxiety (Acute 01/11/15) Medical History (Updated 04/25/21 @ 02:41 by Rajendra March MD) Adult acne Depression Hypertension Surgical History (Updated 03/27/21 @ 10:15 by Trey Dodge MD) History of carpal tunnel surgery 2019, bilat. KNEE SURGERY 1994- [facility], left Family History Mother No problems noted. Father Essential hypertension Depression Family History Neoplasm Social History Smoking/Tobacco Use Status: Never Smoking risk assessment performed?: Yes Alcohol Intake: never Drug use: Never Substance use type: does not use Current gender identity: male Do you feel safe at home: Yes Do you feel safe in your relationship?: Yes Exam Const General: no acute distress and anxious Orientation: alert HENMT Head: normal to inspection Ears: external ears normal General nose exam: external nose normal Mouth: moist mucous membranes Eyes General: appearance normal, both eyes and all related structures Neck Neck: normal visual inspection Resp Effort & Inspection: normal respiratory effort and able to speak in complete sentences Cardio Rate: regular rate GI Palpation: soft and nontender Skin General skin exam: no rashes or lesions noted Neuro General: patient alert and patient oriented x3 Extrem General: normal to inspection Psych Mental Status: mental status grossly normal Course Vital Signs Vital signs: Vital Signs Temperature 37.2 C 04/24/21 23:35 Pulse 97 H 04/24/21 23:35 Respiratory Rate 17 04/24/21 23:35 Blood Pressure 153/98 H 04/24/21 23:35 Pulse Oximetry 98 04/24/21 23:35 Temperature 37.2 C 04/24/21 23:35 Temperature Source Tympanic 04/24/21 23:35 Pulse 97 H 04/24/21 23:35 Respiratory Rate 17 04/24/21 23:35 Blood Pressure 153/98 H 04/24/21 23:35 Pulse Oximetry 98 04/24/21 23:35 Oxygen Delivery Method Room Air 04/24/21 23:35 Oxygen Flow Rate 0 04/24/21 23:35 Pain Level 0 04/24/21 23:35
[2021-04-24 23:51] LABS: Abs Immature Grans 0.02 10^3/uL (0.0-0.06); Absolute Basophil Count 0.05 10^3/uL (0.0-0.2); Absolute Eosinophil Count 0.42 10^3/uL (0.0-0.7); Absolute Lymphocyte Count 3.05 10^3/uL (1.2-3.4); Absolute Monocyte Count 1.31 10^3/uL (0.1-0.8); Absolute Neutrophil Count 4.28 10^3/uL (1.2-6.7); Basophils % 0.5; Eosinophils % 4.6; HCT 44.7 % (40.0-50.0); HGB 15.2 g/dL (13.5-17.5); Immature Grans % 0.2; Lymphocytes % 33.4; MCH 29.6 pg (27.0-33.0); MPV 10.2 fL (8.0-11.0); Monocytes % 14.3; Nucleated RBC 0 %; Platelet Count 233 10^3/uL (130-400); RBC 5.14 10^6/uL (4.36-5.78); RDW 12.2 % (11.8-14.1); RDW-SD 38.8 fL; WBC 9.13 10^3/uL (4.4-10.8)
[2021-04-25] VITALS (19 sets, daily range): BP systolic 136–143; BP diastolic 79–89; PULSE 72–100; RESP 13–22; O2SAT 93–97
[2021-04-25 00:15] LABS: ALT 88 U/L (16-63); AST 45 U/L (15-37); Albumin 4.3 g/dL (3.4-5.0); Alkaline Phosphatase 76 U/L (46-116); Anion Gap 9.9 mmol/L (3-11); BUN 25 mg/dL (7-18); Bilirubin, Total 0.4 mg/dL (0.2-1.0); CO2 28.1 mmol/L (21.0-32.0); CREATININE 1.3 mg/dL (0.70-1.30); Chloride 102 mmol/L (98-107); Glucose 113 mg/dL (74-106); Potassium 3.4 mmol/L (3.5-5.1); Sodium 140 mmol/L (136-145); TSH (W/Ref FT4) 2.08 uIU/mL (0.36-3.74); Total Protein 8.3 g/dL (6.4-8.2); Troponin I < 50 ng/L (<or=60)
[2021-04-25 00:24] LABS: Creatine Kinase 1163 U/L (39-308); ETHANOL BLOOD < 3.0 mg/dL (<10)
[2021-04-25] MEDS: Normal Saline 1,000 ML 1000 ML IV ×2 (00:36→00:45)
--- NOTE | 2021-04-25 00:37 | DI.VRAD_ITS ---
PROCEDURE INFORMATION: Exam: CT Head Without Contrast Exam date and time: 04/24/2021 11:45 PM Age: 45 years old Clinical indication: Other: AMS TECHNIQUE: Imaging protocol: Computed tomography of the head without contrast. Radiation optimization: All CT scans at this facility use at least one of these dose optimization techniques: automated exposure control; mA and/or kV adjustment per patient size (includes targeted exams where dose is matched to clinical indication); or iterative reconstruction. COMPARISON: No relevant prior studies available. FINDINGS: Brain: Normal. No hemorrhage. Unremarkable white matter. No mass effect. Cerebral ventricles: No ventriculomegaly. Paranasal sinuses: Visualized sinuses are unremarkable. No fluid levels. Mastoid air cells: Visualized mastoid air cells are well aerated. Bones/joints: Unremarkable. No acute fracture. Soft tissues: Unremarkable. IMPRESSION: No acute intracranial abnormality. Dictated and Authenticated by: Yahir Gloria MD. Ordering:INES Drew MD
[2021-04-25 00:55] LABS: Bilirubin Negative (Negative); Blood Negative (Negative); Clarity Clear (Clear); Glucose Negative (Negative); Ketones Negative (Negative); Leukocyte Esterase Negative (Negative); Nitrite Negative (Negative); Specific Gravity >= 1.030 (1.005-1.025); Urobilinogen 0.2 EU/dL (Up TO 0.2); pH 5.5 (5-8)
[2021-04-25 01:07] LABS: *AMPHETAMINES SCREEN URINE Negative (Negative); *BARBITURATES SCREEN URINE Negative (Negative); *BENZODIAZEPINES SCREEN URINE Negative (Negative); Cannabinoids THC Negative (Negative); Cocaine Screen,Urine Negative (Negative); METHADONE URINE SCREEN Negative (Negative); OPIATES URINE SCREEN Negative (Negative)
[2021-04-25 01:08] LABS: Carboxyhemoglobin 1.5 %
[2021-04-25 01:08] LABS: Tricyclic Antidepressants Negative (Negative)
[2021-04-25 02:32] LABS: Creatine Kinase 836 U/L (39-308); Troponin I < 50 ng/L (<or=60)
== END 2021-04-25 02:49 | disposition home or self-care (01) ==
PROVIDERS: Emergency Provider Emergency Medicine; PCP Family Medicine
DX: R41.82 Altered mental status, unspecified (principal); E86.0 Dehydration; R74.8 Abnormal levels of other serum enzymes; R74.01 Elevation of levels of liver transaminase levels
CPT/HCPCS: 80053; 80307; 82375; 82550; 93005; 96360; 96361; 99284; 70450; 80320; 81003; 83735; 84443; 84484; 85025; 93010

== ENCOUNTER 2021-05-11 01:48 | Outpatient (CLI) | payer OTHER, SELFPAY ==
[2021-05-11 08:37] LABS: HCT 46.1 % (40.0-50.0); HGB 15.4 g/dL (13.5-17.5); MCH 29.3 pg (27.0-33.0); MCHC 33.4 % (32.0-36.0); MCV 87.8 fL (80-95); MPV 9.8 fL (8.0-11.0); Platelet Count 255 10^3/uL (130-400); RBC 5.25 10^6/uL (4.36-5.78); RDW 12.1 % (11.8-14.1); RDW-SD 39.3 fL; WBC 6.72 10^3/uL (4.4-10.8)
[2021-05-11 09:14] LABS: Hemoglobin A1C 5.3 % (<5.7)
[2021-05-11 09:35] LABS: ALT 82 U/L (16-63); AST 31 U/L (15-37); Albumin 4.3 g/dL (3.4-5.0); Alkaline Phosphatase 73 U/L (46-116); Anion Gap 11.9 mmol/L (3-11); BUN 23 mg/dL (7-18); Bilirubin, Total 0.4 mg/dL (0.2-1.0); CO2 24.1 mmol/L (21.0-32.0); Calcium 9.3 mg/dL (8.5-10.1); Chloride 103 mmol/L (98-107); Glucose 104 mg/dL (74-106); Potassium 4.6 mmol/L (3.5-5.1); Sodium 139 mmol/L (136-145); Total Protein 8.2 g/dL (6.4-8.2)
[2021-05-11 09:46] LABS: Calculated LDL 149 mg/dL (<100); Cholesterol 227 mg/dL (<200); HDL Cholesterol 38 mg/dL (40-60); TSH (W/Ref FT4) 0.76 uIU/mL (0.36-3.74); Triglyceride 202 mg/dL (<150)
[2021-05-11 09:58] LABS: C-Reactive Protein 0.22 mg/dL (0.0-0.3); Creatine Kinase 513 U/L (39-308)
[2021-05-14 10:22] LABS: Hepatitis C Ab w Rflx HCV PCR Negative (Negative)
== END 2021-05-11 01:49 | disposition home or self-care (01) ==
PROVIDERS: Family Medicine; PCP Nurse Practitioner Family; Visit Provider Emergency Medicine
DX: R41.82 Altered mental status, unspecified (principal); I10 Essential (primary) hypertension; R73.9 Hyperglycemia, unspecified; Z11.59 Encounter for screening for other viral diseases
CPT/HCPCS: 36415; 80053; 80061; 82550; 85027; 86803; 83036; 84443; 86140

== ENCOUNTER 2021-07-02 00:47 | Outpatient (CLI) | payer OTHER, SELFPAY ==
--- NOTE | 2021-07-02 08:15 | DI.RAD_ITS ---
Exam(s) XR SHOULDER RT COMPLETE 2+V EXAM: XR SHOULDER RT COMPLETE 2+V CLINICAL HISTORY: Failing PT, continued pain,SHOULDER IMPINGEMENT SYNDROME,M75.41. TECHNIQUE: 2D digital imaging was performed. Five views COMPARISON: No exams were available for comparison FINDINGS: BONES: No acute fracture is present. No bony destructive lesion is seen. JOINTS: No dislocation present. Minimal spurring at the AC joint and tip of the acromion. [place] ral joint space is well maintained. SOFT TISSUE: Calcification projecting adjacent to the superolateral portion of the acromion. IMPRESSION: Minimal degenerative changes. DATA REPOSITORY: RADIATION DOSE DELIVERED:
== END 2021-07-02 01:07 ==
PROVIDERS: PCP Nurse Practitioner Family; Visit Provider Nurse Practitioner Family
DX: M25.511 Pain in right shoulder (principal); M75.41 Impingement syndrome of right shoulder; M75.81 Other shoulder lesions, right shoulder
CPT/HCPCS: 73030

== ENCOUNTER 2022-05-09 08:24 | Day surgery (SDC) | payer OTHER, SELFPAY ==
--- NOTE | 2022-05-08 20:32 | W.PM.DSUDISC ---
Date of service: 05/09/22 Time of Service: 10:45 Discharge Plan Disposition Patient Disposition: Home Condition: Good Discharge Details Reason For Visit: EGD and colonoscopy Attending Provider: Ramon Mclean Primary Care Provider: Emilio Meza Home Meds and New Rx's Prescriptions: Continued meloxicam 15 mg tablet 15 mg PO DAILY Qty: 30 3RF Rx Instructions: TAKE 1 TABLET BY MOUTH DAILY lisinopril 30 mg tablet 30 mg PO DAILY Qty: 90 3RF omeprazole magnesium 20 mg tablet,delayed release (DR/EC) 20 mg PO DAILY Qty: 90 3RF citalopram 40 mg tablet 40 mg PO DAILY Qty: 90 3RF ibuprofen 600 mg tablet 600 mg PO TID PRNQty: 30 0RF doxycycline monohydrate 100 mg capsule 100 mg PO DAILY PRN Discontinued bisacodyl [Dulcolax (bisacodyl)] 5 mg tablet,delayed release (DR/EC) 5 mg PO ONCE Qty: 4 0RF Rx Instructions: Take according to provider's instructions for colonoscopy prep. polyethylene glycol 3350 17 gram/dose powder 17 g PO ONCE Qty: 238 0RF Rx Instructions: To be taken as directed by prescriber's office for colonoscopy prep. Discharge Instructions Instructions: GERD (Gastroesophageal Reflux Disease) (GEN) Additional Instructions: 1. If tolerated, consume a soft, low fiber diet for 1-2 days. [address] Do not drive, drink alcohol, operate machinery, make critical decisions, or do activities that require coordination or balance for 24 hours. 3. Because air was put into your colon during the procedure, expelling air from your rectum (passing gas or farting) is normal. 4. You may not have a bowel movement for 1-3 days because of the colonoscopy prep. This is normal. 5. You may experience a sore throat for 24 to 48 hours. You may use throat lozenges or gargle with warm salt water to relieve the discomfort. 6. Because air was put into your stomach during the procedure, you may experience some belching. 7. Go directly to the emergency room if you notice any of the following: Develop chills (warm to touch), or if you have a thermometer and your temperature is above 101 Difficulty breathing or difficultly swallowing Persistent vomiting Severe abdominal pain, other than gas cramps Severe chest pain Black, tarry stools Any bleeding ? exceeding one tablespoon 8. Call your physician if the site where your intravenous was started becomes red, swollen, painful, and warm to touch. 9. Your physician has reviewed your pre-procedure medications. Please continue to take those medications as previously ordered. You will be given specific information/education regarding any changes to your medications before leaving. Activity:: Activity as Tolerated Diet:: As Tolerated Discharge Orders Discharge Orders: Discharge Order (Routine); Ordered 05/08/22 Ordered By: Ramon Mclean DS: Diagnosis Discharge Diagnosis (1) Screening for colon cancer: Status: Acute Asessment and Plan: Philippe, we were able to perform a complete colonoscopy today. I did not see any evidence of any polyps, diverticulosis, or other worrisome findings within your colon. I did find a small abnormality along your anus that seems consistent with some scar tissue. I perform some biopsies. I will notify you when those results are available. (2) GERD (gastroesophageal reflux disease): Status: Chronic Asessment and Plan: Your upper endoscopy looked very good. Your duodenum and stomach were totally normal. You had some mild irregularity of the connection between your esophagus and your stomach. This is very typical for patients that suffer from gastroesophageal reflux disease. I perform some biopsies here. I will notify you when I have those results.
--- NOTE | 2022-05-08 20:34 | W.PM.OP ---
Date of service: 05/09/22 Time of Service: 10:47 Operative Note Operative Note DATE OF PROCEDURE: 05/09/22 PRE-OP DIAGNOSIS: GERD and screening colonoscopy POST-OP DIAGNOSIS: other (Esophagitis, anal lesion) PROCEDURE: EGD with biopsy, colonoscopy, anoscopy with biopsy SURGEON: Ramon Mclean ANESTHESIA TYPE: General:No Airway Refer to Anesthesia Record ESTIMATED BLOOD LOSS: 10 PATHOLOGY: other (Four-quadrant biopsies of gastroesophageal junction, biopsy of anal column lesion) COMPLICATIONS: None Patient was transported to: same day Patient's condition: stable Indications: Philippe is a 46-year-old male with longstanding gastroesophageal reflux disease, he is undergoing a endoscopy to surveilled for symptoms of Rae's esophagus. Additionally, he is here for screening colonoscopy as part of routine health maintenance for prevention of colorectal cancers. Findings: Mild irregularity of the Z-line around 48 to 49 cm, anal column lesion Procedure Description: After the initiation of monitored anesthetic care, and with the assistance of a bite block, I advanced a standard gastroscope through the mouth past the hypopharynx and into the esophagus.? Under the direct vision of the scope, I advanced down the esophagus into the stomach.? Once I entered the stomach, I performed a brief inspection, followed by retroflexion towards the gastric cardia.? This appeared normal.? After that, I gently advanced the scope around the incisura angularis and examined the pylorus.? This also appeared normal.? Next, I advanced the scope through the pylorus into the duodenum.? The mucosa was pink and healthy appearing.? There were no abnormalities.? I was able to visualize bile draining into the duodenum through the ampulla Vater. ?Next, I began retracting the endoscope.? I examined the stomach once again, and I was not able to find any abnormalities. I then gently desufflated some of the stomach, and withdrew the endoscope into the distal esophagus. The GE junction was measured at 49 cm. There was some mild irregularity of the Z-line extending from 48 to 49 cm. I performed four-quadrant biopsies here using cold forceps. There was minimal bleeding.. ?Finally, I withdrew the scope along the length of the esophagus taking great care to examine the entirety of the mucosa.? I did not appreciate any abnormalities. We then moved abdomen into the left lateral decubitus position, I began by performing an external anorectal exam.? Perineum and skin were normal, as was the anal verge.? There was no evidence of external hemorrhoids.? Next, I performed a digital rectal exam.? There was a subcentimeter area of indurated tissue towards the posterior midline.? Next, I advanced a colonoscope into the rectal vault.? I performed retroflexion.? This appeared normal.? Using insufflation, I then advanced the colonoscope beyond the rectal folds and into the sigmoid colon before advancing towards the cecum.? The quality of the prep was excellent.? The scope was noted to be in the cecum by identification of the ileocecal valve and appendiceal orifice.? I then began withdrawing the colonoscope using repeated irrigation as necessary for full evaluation of the colonic mucosa. ?Once the scope was withdrawn to the level of the rectum, great care was taken to examine portions of the rectal folds.? This was all normal. Because of the palpable abnormality in the anal column, I then performed fiberoptic endoscopy. I was able to visualize a small area of indurated tissue in the posterior midline, slightly towards the patient's left side. It appeared consistent with the opening of the fistula. However, because of his positioning, it was quite difficult to fully assess this. In order to rule out more worrisome pathology, I did perform a biopsy of this area. There was minimal bleeding. The findings and instructions were shared with the patient prior to discharge.
[2022-05-09 08:30] VITALS: BP 131/95; PULSE 84; RESP 16; TEMP 36.2; O2SAT 96
[2022-05-09] MEDS: Lactated Ringers 1,000 ML 80 ML IV (09:00)
--- NOTE | 2022-05-09 09:48 | W.ANESPRE ---
General Info Date of Service Date Performed: 05/09/22 Height: 5 ft 8 in Weight: 92.4 kg Body Mass Index (BMI): 30.9 Surgical Procedure: Operation Date: 05/09/22 10:05 Proposed Procedure Side Surgeon p Colonoscopy/Gastroscopy Ramon Mclean MD Meds Allergies and Home Medications Allergies Allergy/AdvReac Type Severity Reaction Status Date / Time bupropion [From Wellbutrin] AdvReac Intermediate headache Verified 05/09/22 08:46 nausea oxycodone AdvReac Intermediate NAUSEA/VOMI Verified 05/09/22 08:46 TING OPIATE AGONISTS (NARCOTICS) AdvReac Intermediate NAUSEA/VOMI Uncoded 05/09/22 08:46 TING Home Medication Medication Instructions Recorded ibuprofen 600 mg tablet 600 mg PO TID PRN #30 tabs 06/11/19 meloxicam 15 mg tablet 15 mg PO DAILY #30 tabs 07/09/21 lisinopril 30 mg tablet 30 mg PO DAILY #90 tabs 11/20/21 omeprazole magnesium 20 mg 20 mg PO DAILY #90 tabs 11/20/21 tablet,delayed release citalopram 40 mg tablet 40 mg PO DAILY #90 tabs 01/01/22 doxycycline monohydrate 100 mg 100 mg PO DAILY PRN 05/08/22 capsule Current Visit Medications: Current Medications Generic Name Dose Route Start Last Admin Trade Name Freq PRN Reason Stop Dose Admin Hyoscyamine Sulfate 0.125 mg 05/08/22 20:35 Hyoscyamine 0.125 Mg Sl/Oral/Chew SL DIRECTED PRN Ringer's Solution 1,000 mls @ 80 mls/hr 05/09/22 06:00 05/09/22 09:00 IV 06/07/22 23:59 80 mls/hr INFUSION JANET Administration IV Miscellaneous Supplies 1 each 05/09/22 06:00 Iv Access IV 06/07/22 23:59 DIRECTED JANET Ondansetron HCl 4 mg 05/08/22 20:35 Ondansetron 4 Mg/2 Ml Vial IVP Q4H PRN PRN Nausea / Vomiting Sodium Chloride 0 ml 05/09/22 06:00 Normal Saline Flush 10 Ml Syr IV 06/07/22 23:59 PRN PRN Sodium Chloride 0 ml 05/09/22 06:00 Normal Saline 10 Ml Vial IJ 06/07/22 23:59 DIRECTED PRN Sterile Water 0 ml 05/09/22 06:00 Water,Injection,Sterile 10 Ml Vial IJ 06/07/22 23:59 DIRECTED PRN PFSH Active Problems Active Problems: Problem Status Onset Code Screening for colon cancer Z12.11 GERD (gastroesophageal reflux disease) K21.9 Depression Right rotator cuff tear M75.101 Essential hypertension I10 Sexual dysfunction R37 Anxiety 01/11/15 F41.9 Medical History Medical History Adult acne COVID-19 02/2021- URI with loss of tast/smell-resolved, breakthrough infection Hypertension Surgical History Surgical History History of carpal tunnel surgery 2019, bilat. KNEE SURGERY 1994- TORN MINISCUS, left Tobacco Smoking/Tobacco Use Status: Never Second hand exposure: No Alcohol Alcohol Intake: never Substance Use Substance use: Never Substance use type: does not use Vital Signs and Lab Results Vital Signs Most Recent Vital Signs in EMR: Most Recent Vital Signs Temp Pulse Resp BP Pulse Ox 36.2 C L 84 16 131/95 H 96 05/09/22 08:30 05/09/22 08:30 05/09/22 08:30 05/09/22 08:30 05/09/22 08:30 Lab Results Blood Type / Crossmatch: No Data to Display Complete Blood Count: No Data to Display Complete Metabolic Panel: No Data to Display Liver Function Panel: No Data to Display Coagulation Panel: No Data to Display Cardiac Panel: No Data to Display Arterial Blood Gas: No Data to Display Venous Blood Gas: No Data to Display Pancreas Panel: No Data to Display Thyroid Panel: No Data to Display Infectious Disease: No Data to Display Blood Cultures: No Data to Display Toxicology Panel: No Data to Display Imaging and Studies Imaging and Studies Study information below may be from another EMR and interpreted by another provider. Please see original notes in EMR for more complete details. EKG Summary: DATE/TIME OF SERVICE: 04/24/21 2342 : 1975PERFORMING LOCATION: ER APPROVED REPORT Exam: Resting ECG Reason for Exam: chest pain Patient Location: E HR:93 bpm ECG Measurements Heart Rate 93 AXIS WV 145 P 42 QRSd 83 QRS 27 QT 334 T-82 QTc 416 Conclusion Sinus rhythm...normal P axis, V-rate 60- 99 Probable left atrial enlargement...P >50mS, <-0.10mV V1 Stress Test Summary: 08/12/14: negative ischemia Anesthesia Assessment and Plan Anesthesia History Personal History: No History of Anesthesia Complications Family History: No Family History of Anesthesia Complications Exercise Tolerance Exercise Tolerance: Metabolic Equivalents>4 Pertinent Negatives Pertinent Negatives: No Symptoms of GERD Cardiac & Pulmonary Exam Cardiac Exam: Normal S1/S2 Heart Sounds Pulmonary Exam: Clear Bilateral Breath Sounds Implantable Cardiac Device Does patient have a Pacemaker or an ICD?: No Airway Exam Known Difficult Airway: No Mallampati Class: 1 Mouth Opening: Normal (> 3cm) Thyromental Distance: Greater than 3 cm Neck Range of Motion: Full ROM Neck Circumference: Normal Teeth Condition: Normal Dentition ASA Classification ASA Score: ASA 2 Emergency Case?: No NPO Status NPO Status: NPO Clears >2 hours, Solids >8 hours Anesthesia Plan Resuscitation Status: Full Code Anesthesia Technique: General Anesthesia Airway Planned: Natural Airway Monitors Used: Standard Monitors
[2022-05-09 09:55] VITALS: BMI 30.9
--- NOTE | 2022-05-09 10:10 | ESO_PTH ---
PATIENT: Philippe Senior LOC: [facility] U#:[id number] AGE/SX: 46/M ROOM: RE05/09/[address]: Ramon Mclean MD : 1975 BED: DIS: 05/09/2022 SPEC #: [id number] RECD: 05/09/22 12:14 STATUS: JASMYN RE #: [id number] VIVIEN: 05/09/22 10:[address]: Ramon Mclean DEPT: Surgical Specimen RECD BY: Gita Vega ENTERED: 05/09/22 12:15 SP TYPE: Eso OTHR DR: Emilio Meza, MATERIAL ANALYST Tissues: 1 - ESOPHAGUS BIOPSY 2 - BIOPSY BOWEL Procedures: GROSS AND MICRO LEVEL 4 Comments: [id number]
[2022-05-09 10:36] VITALS: BP 134/84; PULSE 68; RESP 16; TEMP 36.4; O2SAT 95
[2022-05-09 11:15] VITALS: BP 138/95; PULSE 64; RESP 18; TEMP 36.2; O2SAT 98
--- NOTE | 2022-05-09 15:11 | W.ANESPOSTOP ---
Postoperative Evaluation Date, Time and Location Date Performed: 05/09/22 Time Performed: 15:11 Patient Location: Day Surgery Unit Vital Signs Most Recent Imported Vital Signs: Most Recent Vital Signs Temp Pulse Resp BP Pulse Ox 36.2 C L 64 18 138/95 H 98 05/09/22 11:15 05/09/22 11:15 05/09/22 11:15 05/09/22 11:15 05/09/22 11:15 Pain Score Most Recent Pain Score: Most Recent Pain Score Pain Level 0 05/09/22 11:15 Assessment Mental Status: Awake (Alert & Oriented to Patient Baseline) Airway and Respiratory Function: Patent airway with normal (patient baseline) respiratory exam Cardiovascular Function: Hemodynamically Stable Hydration Status: Adequately Hydrated Nausea & Vomiting: No Nausea or Vomiting Pain: Pt. Denies Any Pain Peripheral Nerve Block: Patient did not receive a nerve block
== END 2022-05-09 11:36 | disposition home or self-care (01) ==
PROVIDERS: PCP Nurse Practitioner Family; Visit Provider Surgery
PROC: (CPT 45380; principal; 2022-05-09 10:00)
DX: Z12.11 Encounter for screening for malignant neoplasm of colon (principal); K62.89 Other specified diseases of anus and rectum; K20.90 Esophagitis, unspecified without bleeding; K21.9 Gastro-esophageal reflux disease without esophagitis
CPT/HCPCS: 45380; 43239; 88305; J2704

== ENCOUNTER 2022-05-28 07:15 | Day surgery (SDC) | payer OTHER, SELFPAY ==
[2022-05-28] VITALS (18 sets, daily range): BP systolic 91–138; BP diastolic 50–101; PULSE 61–82; RESP 12–20; TEMP 36.4–36.7; O2SAT 93–98; BMI 31.6
--- NOTE | 2022-05-28 06:49 | W.PM.DSUDISC ---
Date of service: 05/28/22 Time of Service: 12:12 Discharge Plan Disposition Patient Disposition: Home Condition: Good Discharge Details Reason For Visit: Right rotator cuff tear Attending Provider: Cornell Kyle Primary Care Provider: Emilio Meza Home Meds and New Rx's Prescriptions: New acetaminophen 500 mg tablet 500 mg PO Q6H PRN (Reason: pain) Qty: 60 2RF ibuprofen 600 mg tablet 600 mg PO TID PRN (Reason: pain) Qty: 60 0RF hydrocodone-acetaminophen 7.5-325 mg tablet 1 tab PO Q6H PRNQty: 12 0RF Continued lisinopril 30 mg tablet 30 mg PO DAILY Qty: 90 3RF omeprazole magnesium 20 mg tablet,delayed release (DR/EC) 20 mg PO DAILY Qty: 90 3RF citalopram 40 mg tablet 40 mg PO DAILY Qty: 90 3RF doxycycline monohydrate 100 mg capsule 100 mg PO DAILY PRN sucralfate [Carafate] 1 gram tablet 1 g PO QAC Qty: 30 3RF Rx Instructions: Take one pill every night before bed Discontinued meloxicam 15 mg tablet 15 mg PO DAILY Qty: 30 3RF Rx Instructions: TAKE 1 TABLET BY MOUTH DAILY ibuprofen 600 mg tablet 600 mg PO TID PRNQty: 30 0RF Discharge Instructions Additional Instructions: You may remove the dressing after 3 days and replace with bandaids. Stand Alone Forms: Anesthesia Discharge Inst., Anes.Nerve Block Instructions, Anabella dougherty/RICKY, Mariam Mcmahon ([facility]) Referrals: Cornell Kyle MD [ [facility] STAFF PHYSICIAN] - 06/10/22 10:30 am Equipment/Supplies: Sling Activity:: In Sling Remove Dressings/Wound Care:: Do Not Remove Shower/Bathe:: Cover Diet:: As Tolerated Discharge Orders Discharge Orders: Discharge Order (Routine); Ordered 05/28/22 Ordered By: Federica Araujo
[2022-05-28] MEDS: Acetaminophen 500 MG TAB 1000 MG PO (07:37)
[2022-05-28] MEDS: Celecoxib 200 MG CAP 400 MG PO (07:38)
[2022-05-28] MEDS: Lactated Ringers 1,000 ML 80 ML IV (07:45)
--- NOTE | 2022-05-28 08:01 | W.ANESPRE ---
General Info Date of Service Date Performed: 05/28/22 Height: 5 ft 8 in Weight: 94.4 kg Body Mass Index (BMI): 31.6 Surgical Procedure: Operation Date: 05/28/22 09:40 Proposed Procedure Side Surgeon p Shoulder Rotator Cuff Arthroscopic Right Cornell Kyle MD s Shoulder Bicep Tenodesis,Open Right Cornell Kyle MD Meds Allergies and Home Medications Allergies Allergy/AdvReac Type Severity Reaction Status Date / Time bupropion [From Wellbutrin] AdvReac Intermediate headache Verified 05/28/22 07:26 nausea oxycodone AdvReac Intermediate NAUSEA/VOMI Verified 05/28/22 07:26 TING OPIATE AGONISTS (NARCOTICS) AdvReac Intermediate NAUSEA/VOMI Uncoded 05/24/22 12:35 TING Home Medication Medication Instructions Recorded lisinopril 30 mg tablet 30 mg PO DAILY #90 tabs 11/20/21 omeprazole magnesium 20 mg 20 mg PO DAILY #90 tabs 11/20/21 tablet,delayed release citalopram 40 mg tablet 40 mg PO DAILY #90 tabs 01/01/22 doxycycline monohydrate 100 mg 100 mg PO DAILY PRN 05/08/22 capsule sucralfate 1 gram tablet (Carafate) 1 g PO QAC esophagtitis #30 tabs 05/09/22 acetaminophen 500 mg tablet 500 mg PO Q6H PRN pain #60 tabs 05/28/22 ibuprofen 600 mg tablet 600 mg PO TID PRN pain #60 tabs 05/28/22 Current Visit Medications: Current Medications Generic Name Dose Route Start Last Admin Trade Name Stevoq PRN Reason Stop Dose Admin Acetaminophen 1,000 mg 05/28/22 06:00 05/28/22 07:37 Acetaminophen 500 Mg Tab PO 1,000 mg PREOP JANET Administration Acetaminophen 650 mg 05/28/22 06:47 Acetaminophen 325 Mg Tab PO Q4H PRN PRN Celecoxib 400 mg 05/28/22 06:00 05/28/22 07:38 Celecoxib 200 Mg Cap PO 400 mg PREOP JANET Administration Ringer's Solution 1,000 mls @ 80 mls/hr 05/28/22 06:00 05/28/22 07:45 IV 06/26/22 23:59 80 mls/hr INFUSION JANET Administration Cefazolin Sodium/Dextrose 2 gm in 50 mls @ 100 mls/hr 05/28/22 06:00 Ancef Duplex IVPB 06/26/22 23:59 PREOP JANET IV Miscellaneous Supplies 1 each 05/28/22 06:00 Iv Access IV 06/26/22 23:59 DIRECTED JANET Sodium Chloride 0 ml 05/28/22 06:00 Normal Saline Flush 10 Ml Syr IV 06/26/22 23:59 PRN PRN Sodium Chloride 0 ml 05/28/22 06:00 Normal Saline 10 Ml Vial IJ 06/26/22 23:59 DIRECTED PRN Sterile Water 0 ml 05/28/22 06:00 Water,Injection,Sterile 10 Ml Vial IJ 06/26/22 23:59 DIRECTED PRN PFSH Active Problems Active Problems: Problem Status Onset Code Depression Anxiety 01/11/15 F41.9 Sexual dysfunction R37 Essential hypertension I10 Right rotator cuff tear M75.101 GERD (gastroesophageal reflux disease) K21.9 Screening for colon cancer Z12.11 Medical History Medical History Adult acne COVID-19 02/2021- URI with loss of tast/smell-resolved, breakthrough infection Hypertension Surgical History Surgical History History of carpal tunnel surgery 2019, bil. History of esophagogastroduodenoscopy (EGD) 04/2022 Hx of colonoscopy 04/2022 KNEE SURGERY 1994- TORN MINISCUS, left Tobacco Smoking/Tobacco Use Status: Never Second hand exposure: No Alcohol Alcohol Intake: never Substance Use Substance use: Never Substance use type: does not use Vital Signs and Lab Results Vital Signs Most Recent Vital Signs in EMR: Most Recent Vital Signs Temp Pulse Resp BP Pulse Ox 36.5 C 82 20 133/101 H 97 05/28/22 07:15 05/28/22 07:15 05/28/22 07:15 05/28/22 07:15 05/28/22 07:15 Lab Results Blood Type / Crossmatch: No Data to Display Complete Blood Count: No Data to Display Complete Metabolic Panel: No Data to Display Liver Function Panel: No Data to Display Coagulation Panel: No Data to Display Cardiac Panel: No Data to Display Arterial Blood Gas: No Data to Display Venous Blood Gas: No Data to Display Pancreas Panel: No Data to Display Thyroid Panel: No Data to Display Infectious Disease: No Data to Display Blood Cultures: No Data to Display Toxicology Panel: No Data to Display Imaging and Studies Imaging and Studies Study information below may be from another EMR and interpreted by another provider. Please see original notes in EMR for more complete details. EKG Summary: DATE/TIME OF SERVICE: 04/24/21 2342 : 1975PERFORMING LOCATION: ER APPROVED REPORT Exam: Resting ECG Reason for Exam: chest pain Patient Location: E HR:93 bpm ECG Measurements Heart Rate 93 AXIS MO 145 P 42 QRSd 83 QRS 27 QT 334 T-82 QTc 416 Conclusion Sinus rhythm...normal P axis, V-rate 60- 99 Probable left atrial enlargement...P >50mS, <-0.10mV V1 Stress Test Summary: 08/12/14: negative ischemia Anesthesia Assessment and Plan Anesthesia History Personal History: No History of Anesthesia Complications Family History: No Family History of Anesthesia Complications Exercise Tolerance Exercise Tolerance: Metabolic Equivalents>4 Pertinent Negatives Pertinent Negatives: No Symptoms of GERD, No Major Cardiovascular Symptoms or Complaints, No Major Pulmonary Symptoms or Complaints and No History of CVA/TIA Cardiac & Pulmonary Exam Cardiac Exam: Normal S1/S2 Heart Sounds Pulmonary Exam: Clear Bilateral Breath Sounds Implantable Cardiac Device Does patient have a Pacemaker or an ICD?: No Airway Exam Known Difficult Airway: No Mallampati Class: 1 Mouth Opening: Normal (> 3cm) Thyromental Distance: Greater than 3 cm Neck Range of Motion: Full ROM Neck Circumference: Normal Teeth Condition: Normal Dentition ASA Classification ASA Score: ASA 2 Emergency Case?: No NPO Status NPO Status: NPO Clears >2 hours, Solids >8 hours Anesthesia Plan Resuscitation Status: Full Code Anesthesia Technique: General Anesthesia Airway Planned: Endotracheal Tube Pain Management: Surgeon and patient request nerve block Monitors Used: Standard Monitors
[2022-05-28] MEDS: ceFAZolin 2 GM/50 ML BAG IVPB (09:55)
--- NOTE | 2022-05-28 10:09 | W.ANESNERVE ---
Nerve Block Single Injection Procedure Date and Time Date Performed: 05/28/22 Procedure Start: 08:56 Location Where Procedure Performed Procedure Location: Day Surgery Unit Reason Performed: Postoperative Analgesia Requesting Provider: Cornell Kyle Timeout Performed Timeout Performed: Yes Monitoring Used ECG, Blood Pressure, SpO2 and See EMR for corresponding vital signs Sterility Sterility: Hand Hygiene, Surgical Cap, Surgical Mask, Sterile Gloves, Sterile Drape/Sheet and Chlorhexidine Sedation Given During Procedure Sedation Given (Indicate Dose Given): Versed IV Dose:: 2 mg Patient Mental Status Patient Mental Status: Awake Nerve Block 1st Nerve Block: Laterality: Right Block Type: Interscalene Ultrasound Image Saved?: Yes Needle / Catheter Used: 100mm SonoPlex II Local Anesthetic Bolus (Indicate Dose Given): Lidocaine used for local infiltration of skin, Injected in 3-5ml increments after negative blood aspiration, Bupivacaine 0.5% Dose:: 10 ml and Exparel Dose:: 10 ml Additives (Indicate Dose Given): None Ultrasound: Sterile probe cover and gel used Nerve Stimulator: Not Used Paresthesia: Right Paresthesia Duration: Transient Procedure Tolerated: No Complications and Patient tolerated well Procedure Outcome: Successful Performed By: Monika Shipman Supervised By: Chris Zarate
[2022-05-28] MEDS: Bupivacaine 0.25% Pres-Free 30 ML VIAL (12:05)
[2022-05-28] MEDS: EPINEPHrine 30 MG/30 ML VIAL (12:06)
--- NOTE | 2022-05-28 13:47 | W.PM.OP ---
Date of service: 05/28/22 Time of Service: 11:45 Operative Note Operative Note DATE OF PROCEDURE: 05/28/22 PRE-OP DIAGNOSIS: Right rotator cuff tear, biceps tendinitis, SLAP tear POST-OP DIAGNOSIS: same (Right rotator cuff tear involving the upper subscapularis and supraspinatus, partial biceps tendon tear, SLAP tear) PROCEDURE: - Arthroscopic Rotator Cuff Repair - Extensive debridement of anterior and posterior glenohumeral joint and rotator cuff - Sub-pectoral biceps tenodesis SURGEON: Cornell Kyle CASE PREPARER AND LINER: Jasmin Mcdonald ANESTHESIA TYPE: General LMA/ETT and Primary Nerve Block Refer to Anesthesia Record ESTIMATED BLOOD LOSS: 10 PATHOLOGY: none sent COMPLICATIONS: None Patient was transported to: PACU Patient's condition: stable Indications: I have seen Philippe in clinic for a painful shoulder. Pathology was confirmed based on MRI and exam findings. Nonoperative measures were exhausted but disability and pain persisted. I discussed shoulder arthroscopy and procedures. I reviewed the risks of the procedures to include, but not limited to, bleeding, infection, pain, stiffness, damage to nerves or vessels, recurrence, hardware failure, blood clot. Despite these risks, the patient elected to proceed. Findings: A diagnostic arthroscopy was performed with the following findings: Articular Side - Glenohumeral Joint: No significant arthritic change - Labrum: Tearing of the superior labrum from anterior to posterior involving the anchor. - Cuff: Complete tear of the supraspinatus with exposed footprint, upper subscapularis tearing and degeneration of insertional fibers - Biceps: Partial biceps tendon tear within the intra-articular portion of the tendon Subacromial Side - Bursal: Moderate inflammatory change - Rotator Cuff: Large full-thickness and laminated tear of the supraspinatus tendon. Infraspinatus intact -No significant anterolateral spurring Procedure Description: Philippe was greeted in the preoperative holding area where the correct side was identified and marked. The consent was reviewed with the patient and signed. The history and physical was updated. All questions were answered. He was taken back to the PACU for administration of an intrascalene nerve block. Philippe was then taken to the operating room. The patient was placed into the supine position on the operating room table. A general anesthetic was administered. Philippe was then positioned in the beach chair position. All bony prominences were well padded. The head was placed in a foam desizing machine operator head end in a neutral position. Prophylactic antibiotics in the form of Cefazolin were administered. The right arm/shoulder was then prepped with Chloraprep and draped in a standard fashion with stockinette and shoulder drape. A timeout to confirm correct identity, side and site, procedure, allergies, anesthesia, and medical concerns was performed. The arm was placed into a pneumatic muñoz, [id number]. The shoulder arthroscopy was then performed. The glenohumeral joint was injected with 20 cc of normal saline with good flow back. A standard posterior portal was made and the joint was entered atraumatically with a blunt arthroscope. Once inside we had good visualization of the structures of the glenohumeral joint. An anterior portal was established with spinal needle localization. A 6.5 mm cannula was inserted. A probe was then used to perform a diagnostic arthroscopy. There is noted to be no significant cartilage damage of the glenoid humeral joint. The labrum was torn from the superior glenoid from anterior to posterior involving the biceps anchor. There was some elevation of the superior labrum from the supraglenoid. There were no loose bodies in the inferior pouch. The superior rotator cuff was completely torn from the tuberosity. The biceps tendon had an area of partial thickness tearing. The subscapularis mostly intact is over the upper portion of the subscapularis which showed some stranding, separation of the fibers and some degeneration of the insertional tissues. Using electrocautery I then performed a biceps tenotomy. This would be later turned into a tenodesis. I used a shaver to debride the rotator interval. A anterolateral portal was then established for better access to the subscapularis region. This was made with a spinal needle and then a 8.5 mm cannula. With this inserted, I debrided the rotator interval and the tissues around the subscapularis for better visualization. This demonstrated that the subscapularis did have some partial tearing at its upper portion in addition to some degeneration of the fibers attached to the upper portion of the lesser tuberosity. Using a 4.5 mm shaver I then did a debridement of the insertional area of the upper subscapularis. I debrided some of the tendon back down to healthy tissue. I placed a single 4.5 mm Mytec Healix anchor into the upper portion of the lesser tuberosity. Using a retrograde suture passer placed 2 horizontal mattress sutures into the leading edge of the healthier subscapularis tissue. This was then tied in standard knot tying techniques. This showed excellent reapproximation of the upper subscapularis down to the lesser tuberosity. Debridement of the posterior soft tissues within the joint was also performed. The scope equipment was then removed. The biceps tenodesis was then performed. With the arm and some slight external rotation abduction pectoralis major tendon was identified. A 2 cm incision was made overlying the insertion to the humerus. Sharp dissection was carried onto the skin. Blunt dissection was carried down to the fascia the biceps musculature. This was entered with a tenotomy scissors. The biceps groove was palpable and the biceps tendon was palpable. It was withdrawn from the wound using Allis clamp and finger dissection. Once the biceps tendon was out of the arm the biceps groove was prepared using a rasp. A Mitek Lupine anchor was inserted into the biceps groove at the level of the pectoralis major insertion. This was tested to make sure had excellent fixation into the bone. Using a free needle I then placed a locking Krak?w stitch and each side of the biceps tendon using one limb from each suture at the level of the muscular tendinous junction and moving proximally. Excess tendon was then cut. Using the free suture limb I then shuttled the tendon down to the prepared surface of the humerus. It laid flat against the humerus. It was at the level of the pectoralis major tendon. The suture limbs were then tied. The wound was irrigated. The subcutaneous tissue was reapproximated with a 2-0 Vicryl. The arthroscope was then inserted into the subacromial space. The 6.5 mm cannula was placed lateral to the CA ligament. A complete bursectomy is performed anteriorly, posteriorly, and laterally with electrocautery and shaver. This had excellent exposure of the rotator cuff and its tear. There was no significant spur. Using a spinal needle a posterior lateral portal was established. This became the viewing portal. This was a primary crescent type tear involving all the supraspinatus. The supraspinatus tendon was laminated. Debrided the leading tendon edge back to healthier tissue. I also debrided the footprint of the greater tuberosity of any other soft tissue until there is some bleeding bone. I then placed 2 4.5 mm Mitek Roberta tape anchors. 1 was placed anteriorlyposteriorly at the medial edge of the footprint. I placed a traction suture into the inferior lamination of the supraspinatus. With some slight traction on this brought the tendon edges over and I was able to place 1 passing suture anteriorly in the tendon approxi-1 cm from the edge. This passing sutures and used to bring the tape and Roberta cord suture through the anterior portion of the supraspinatus. This was then brought out the anterior portal. This was repeated posteriorly. With these in appropriate position I then placed a knot between 1 limb from the anterior 1 limb from the posterior Roberta cord sutures. The sutures were brought the lateral portal and tied. Extra suture was cut and the Roberta cord was pulleyed down to the tendon. To complete the bridge type repair I then placed 2 Mitek 4.75 mm knotless anchors. One was placed anteriorly incorporating the posterior Roberta cord suture and 1 tape from each location. This was tension and inserted without difficulty. A second posterior anchor was placed in a similar fashion. There is no dogear. There may have been some slight over reduction of the retear cuff tendon. There was no exposed footprint. Excess suture was removed. The scope equipment was removed from the shoulder. Excess fluid was evacuated. The portal sites were closed with 3-0 Monocryl. The wounds were dressed with Steri-Strips, 4 x 4's, ABDs, Medipore tape. A sling was applied. The patient tolerated the procedure well and was returned to the PACU in a stable condition suffering no known complication.
--- NOTE | 2022-05-28 15:03 | W.ANESPOSTOP ---
Postoperative Evaluation Date, Time and Location Date Performed: 05/28/22 Time Performed: 15:03 Patient Location: Day Surgery Unit Vital Signs Most Recent Imported Vital Signs: Most Recent Vital Signs Temp Pulse Resp BP Pulse Ox 36.5 C 61 17 107/75 94 05/28/22 14:35 05/28/22 14:35 05/28/22 14:35 05/28/22 14:35 05/28/22 14:35 Pain Score Most Recent Pain Score: Most Recent Pain Score Pain Level 0 05/28/22 14:35 Assessment Mental Status: Awake (Alert & Oriented to Patient Baseline) Airway and Respiratory Function: Patent airway with normal (patient baseline) respiratory exam Cardiovascular Function: Hemodynamically Stable Hydration Status: Adequately Hydrated Nausea & Vomiting: No Nausea or Vomiting Pain: Pt. Denies Any Pain Peripheral Nerve Block: Regional nerve block not resolved at time of post operative discharge
[2022-05-28] MEDS: Acetaminophen 325 MG TAB 650 MG PO (15:38)
== END 2022-05-28 16:25 | disposition home or self-care (01) ==
PROVIDERS: PCP Nurse Practitioner Family; Visit Provider Student in an Organized Health Care Education/Training Program
PROC: (CPT 29827; principal; 2022-05-28 09:30)
PROC: (CPT 23430; 2022-05-28 09:30)
DX: M75.101 Unspecified rotator cuff tear or rupture of right shoulder, not specified as traumatic (principal); M24.111 Other articular cartilage disorders, right shoulder; M75.21 Bicipital tendinitis, right shoulder; M75.51 Bursitis of right shoulder
CPT/HCPCS: 23430; 29827; 29823; 76942; J0690; J1100; J1885; J2250; J2370; J2405; J2704

== ENCOUNTER 2022-05-30 16:16 | Emergency (ER) | payer OTHER, SELFPAY ==
[2022-05-30] VITALS (28 sets, daily range): BP systolic 137–162; BP diastolic 88–109; PULSE 67–84; RESP 10–39; TEMP 37.1; O2SAT 92–96
--- NOTE | 2022-05-30 16:15 | RT.EKG_ITS ---
APPROVED REPORT Exam: Resting ECG Reason for Exam: sob Patient Location: E HR:68 bpm ECG Measurements Heart Rate 68 AXIS MD 137 P 64 QRSd 82 QRS 75 QT 378 T -15 QTc 402 Conclusion Sinus rhythm...normal P axis, V-rate 60- 99
[2022-05-30 17:05] LABS: Abs Immature Grans 0.02 10^3/uL (0.0-0.06); Absolute Basophil Count 0.06 10^3/uL (0.0-0.2); Absolute Eosinophil Count 0.37 10^3/uL (0.0-0.7); Absolute Lymphocyte Count 2.77 10^3/uL (1.2-3.4); Absolute Monocyte Count 1.01 10^3/uL (0.1-0.8); Absolute Neutrophil Count 5.22 10^3/uL (1.2-6.7); Basophils % 0.6; Eosinophils % 3.9; HCT 42.1 % (40.0-50.0); HGB 14.2 g/dL (13.5-17.5); Immature Grans % 0.2; Lymphocytes % 29.3; MCH 29.5 pg (27.0-33.0); MCHC 33.7 % (32.0-36.0); MCV 87 fL (80-95); MPV 10.1 fL (8.0-11.0); Monocytes % 10.7; Neutrophils % 55.3; Platelet Count 197 10^3/uL (130-400); RBC 4.82 10^6/uL (4.36-5.78); RDW 12.4 % (11.8-14.1); RDW-SD 40.1 fL; WBC 9.45 10^3/uL (4.4-10.8)
--- NOTE | 2022-05-30 17:20 | W.ED.GENAD ---
Discharge Plan Disposition Patient Disposition: Home Condition: Stable Discharge Details Clinical Impression: Dyspnea, Elevated hemidiaphragm Primary Care Provider: Emilio Meza ED Provider: Oskar Guzman Home Meds and New Rx's Prescriptions: Continued lisinopril 30 mg tablet 30 mg PO DAILY Qty: 90 3RF omeprazole magnesium 20 mg tablet,delayed release (DR/EC) 20 mg PO DAILY Qty: 90 3RF citalopram 40 mg tablet 40 mg PO DAILY Qty: 90 3RF tramadol 50 mg tablet 50 mg PO Q4H PRN (Reason: pain) Qty: 15 0RF doxycycline monohydrate 100 mg capsule 100 mg PO DAILY PRN sucralfate [Carafate] 1 gram tablet 1 g PO QAC Qty: 30 3RF Rx Instructions: Take one pill every night before bed acetaminophen 500 mg tablet 500 mg PO Q6H PRN (Reason: pain) Qty: 60 2RF ibuprofen 600 mg tablet 600 mg PO TID PRN (Reason: pain) Qty: 60 0RF Discharge Instructions Instructions: Dyspnea (ED) Additional Instructions: Your laboratory values are unremarkable. X-ray reveals an elevated right hemidiaphragm which is likely causing your symptoms and is secondary from your recent scalene block. Please watch for new or worsening symptoms and return to the ER for any concerns. Lastly, please contact your orthopedic surgeon tomorrow to discuss your ER visit and need for outpatient reevaluation. Medical Decision Making This is a 46-year-old gentleman who had a scalene nerve block, intubation, right shoulder surgery 2 days ago presents for shortness of breath. Contacted the Ortho and anesthesia team, told it could be secondary to his scalene block. Also switched him from hydrocodone to tramadol in case there was a medication reaction. Patient reports symptoms are worsening so referred to the ER for further evaluation. Clinically he appears well, nontoxic, lungs are clear to auscultation but diminished in the right base, pulse in the 60s, respirations 16, O2 sat 95% on room air. Symptoms have been going on all day, although low suspicion will obtain a cardiac work-up including a single troponin and EKG. Will obtain chest x-ray. Will obtain COVID, flu, RSV although patient did have COVID 3 weeks ago. Low suspicion for PE but given his shortness of breath and recent procedure will obtain D-dimer with the understanding it very well could be falsely elevated secondary to recent surgery. Would rather not reflexively obtain CTA of chest given low suspicion. Patient remains hemodynamically stable. Speaking in full sentences. No respiratory distress. Laboratory values are unremarkable for any obvious emergent process. D-dimer is normal at 424, will not pursue CTA of the chest. X-ray reveals a elevated right hemidiaphragm. This is likely the cause of the symptoms secondary to the recent scalene block. Discussed work-up with patient and family, spent ample time answering all of their questions to the best of my ability. Standard discharge and return precautions were provided. Patient understands, is agreeable to this plan, and has no additional questions or concerns upon discharge. This documentation was generated using [employer] system, please disregard any oddities of phrase or misspellings. Medical Records Medical records reviewed: Yes I reviewed the patient's medical records. Imaging Data Radiologic Study: Attestation: I personally reviewed and interpreted this imaging study as follows: Imaging: X-Ray Radiologist's impression: PROCEDURE INFORMATION: Exam: XR Chest Exam date and time: 05/30/2022 5:13 PM Age: 46 years old Clinical indication: Shortness of breath TECHNIQUE: Imaging protocol: Radiologic exam of the chest. Views: 1 view. COMPARISON: MRI, UPPER EXT, JOINT S/ CONTRA 07/06/2021 3:30 PM FINDINGS: Lungs: No evidence of significant consolidation. Pleural spaces: No pleural effusion seen. No pneumothorax. Heart/Mediastinum: No cardiomegaly. Diaphragm: There is prominent elevation of the right hemidiaphragm, decreasing the right lung volume. Bones/joints: Unremarkable. IMPRESSION: Prominent elevation of the right hemidiaphragm, which is nonspecific, but causes decreased right lung volume. Correlate with clinical findings to evaluate for possible diaphragmatic herniation/weakness. Lab Data Lab results reviewed: Yes I reviewed the patient's lab results. Labs: Laboratory Tests Range/Units 05/30/22 05/30/22 05/30/22 16:58 16:58 16:58 WBC (4.4-10.8) 10^3/uL RBC (4.36-5.78) 10^6/uL Hgb (13.5-17.5) g/dL Hct (40.0-50.0) % MCV (80-95) fL MCH (27.0-33.0) pg MCHC (32.0-36.0) % RDW (11.8-14.1) % Plt Count (130-400) 10^3/uL MPV (8.0-11.0) fL Immature Gran % Neutrophils % Lymphocytes % Monocytes % Eosinophils % Basophils % Nucleated RBC % (0.0-0.3) % Absolute Neutrophils (1.2-6.7) 10^3/uL Absolute Lymphocytes (1.2-3.4) 10^3/uL Absolute Monocytes (0.1-0.8) 10^3/uL Absolute Eosinophils (0.0-0.7) 10^3/uL Absolute Basophils (0.0-0.2) 10^3/uL PT (9.3-11.0) sec 9.4 INR (0.9-1.1) 0.9 APTT (21.5-31.9) sec 25.9 D-Dimer (<500) ng/mlFEU 424 Sodium (136-145) mmol/L 142 Potassium (3.5-5.1) mmol/L 4.3 Chloride (98-107) mmol/L 105 Carbon Dioxide (21.0-32.0) mmol/L 28.9 Anion Gap (3-11) mmol/L 8.1 BUN (7-18) mg/dL 12 Creatinine (0.70-1.30) mg/dL 1.0 Est GFR (CKD-EPI 2020) (mL/min/1.73m2) 94.00 Glucose (74-106) mg/dL 90 Calcium (8.5-10.1) mg/dL 8.8 Magnesium (1.8-2.4) mg/dL 1.8 Total Bilirubin (0.2-1.0) mg/dL 0.4 AST (15-37) U/L 34 ALT (16-63) U/L 56 Alkaline Phosphatase (46-116) U/L 70 Troponin I (<or=60) ng/L < 50 NT-Pro-B Natriuret Pep (<300) pg/mL 241 Total Protein (6.4-8.2) g/dL 7.1 Albumin (3.4-5.0) g/dL 3.6 COVID-19 Source SARS-CoV-2 (PCR) (Negative) Influenza Type A (PCR) (Negative) Influenza Type B (PCR) (Negative) RSV (PCR) (Negative) Range/Units 05/30/22 05/30/22 05/30/22 16:58 17:11 19:45 WBC (4.4-10.8) 10^3/uL 9.45 RBC (4.36-5.78) 10^6/uL 4.82 Hgb (13.5-17.5) g/dL 14.2 Hct (40.0-50.0) % 42.1 MCV (80-95) fL 87 MCH (27.0-33.0) pg 29.5 MCHC (32.0-36.0) % 33.7 RDW (11.8-14.1) % 12.4 Plt Count (130-400) 10^3/uL 197 MPV (8.0-11.0) fL 10.1 Immature Gran % 0.2 Neutrophils % 55.3 Lymphocytes % 29.3 Monocytes % 10.7 Eosinophils % 3.9 Basophils % 0.6 Nucleated RBC % (0.0-0.3) % 0.0 Absolute Neutrophils (1.2-6.7) 10^3/uL 5.22 Absolute Lymphocytes (1.2-3.4) 10^3/uL 2.77 Absolute Monocytes (0.1-0.8) 10^3/uL 1.01 H Absolute Eosinophils (0.0-0.7) 10^3/uL 0.37 Absolute Basophils (0.0-0.2) 10^3/uL 0.06 PT (9.3-11.0) sec INR (0.9-1.1) APTT (21.5-31.9) sec D-Dimer (<500) ng/mlFEU Sodium (136-145) mmol/L Potassium (3.5-5.1) mmol/L Chloride (98-107) mmol/L Carbon Dioxide (21.0-32.0) mmol/L Anion Gap (3-11) mmol/L BUN (7-18) mg/dL Creatinine (0.70-1.30) mg/dL Est GFR (CKD-EPI 2020) (mL/min/1.73m2) Glucose (74-106) mg/dL Calcium (8.5-10.1) mg/dL Magnesium (1.8-2.4) mg/dL Total Bilirubin (0.2-1.0) mg/dL AST (15-37) U/L ALT (16-63) U/L Alkaline Phosphatase (46-116) U/L Troponin I (<or=60) ng/L Cancelled NT-Pro-B Natriuret Pep (<300) pg/mL Total Protein (6.4-8.2) g/dL Albumin (3.4-5.0) g/dL COVID-19 Source Nasopharynx SARS-CoV-2 (PCR) (Negative) Negative Influenza Type A (PCR) (Negative) Negative Influenza Type B (PCR) (Negative) Negative RSV (PCR) (Negative) Negative HPI General Mode of arrival: ambulatory. Date/Time Provider Initiated Documentation: 05/30/22 16:21. Limitations to Documentation: no limitations. Information obtained by: patient. HPI Narrative: This is a 46-year-old gentleman past medical history of hypertension, depression, anxiety, GERD, had right rotator cuff surgery 2 days ago and at that time had a scalene block as well as general anesthesia reports shortness of breath progressing throughout the day. Patient states that he feels as though he simply cannot take a deep breath. Patient states that when he left the hospital after the procedure, he was having similar symptoms and it was thought that this was secondary to the scalene block potentially affecting his right diaphragm. Patient reports that yesterday at the block seem to wear off, he had discomfort from the procedure and at that time really did not notice any shortness of breath. Upon awaking today he felt as though the block was beginning to take effect again, denies any pain of his shoulder but does have sensation, has subsequently had worsening shortness of breath throughout the day. He denies any recent illness or trauma, chest pain, cough, history of smoking, back pain, abdominal pain, pain or swelling in his legs. Patient states that he would prefer not to take narcotics so he has been using ibuprofen for his discomfort. Related Data Home Medications Medication Instructions Recorded Confirmed lisinopril 30 mg tablet 30 mg PO DAILY #90 tabs 11/20/21 05/30/22 omeprazole magnesium 20 mg 20 mg PO DAILY #90 tabs 11/20/21 05/30/22 tablet,delayed release citalopram 40 mg tablet 40 mg PO DAILY #90 tabs 01/01/22 05/30/22 doxycycline monohydrate 100 mg 100 mg PO DAILY PRN 05/08/22 05/30/22 capsule sucralfate 1 gram tablet (Carafate) 1 g PO QAC esophagtitis #30 tabs 05/09/22 05/30/22 acetaminophen 500 mg tablet 500 mg PO Q6H PRN pain #60 tabs 05/28/22 05/30/22 ibuprofen 600 mg tablet 600 mg PO TID PRN pain #60 tabs 05/28/22 05/30/22 tramadol 50 mg tablet 50 mg PO Q4H PRN pain #15 tabs 05/30/22 05/30/22 Previous Rx's Medication Instructions Recorded lisinopril 30 mg tablet 30 mg PO DAILY #90 tabs 11/20/21 omeprazole magnesium 20 mg 20 mg PO DAILY #90 tabs 11/20/21 tablet,delayed release citalopram 40 mg tablet 40 mg PO DAILY #90 tabs 01/01/22 sucralfate 1 gram tablet (Carafate) 1 g PO QAC esophagtitis #30 tabs 05/09/22 acetaminophen 500 mg tablet 500 mg PO Q6H PRN pain #60 tabs 05/28/22 ibuprofen 600 mg tablet 600 mg PO TID PRN pain #60 tabs 05/28/22 tramadol 50 mg tablet 50 mg PO Q4H PRN pain #15 tabs 05/30/22 Allergies Allergy/AdvReac Type Severity Reaction Status Date / Time bupropion [From Wellbutrin] AdvReac Intermediate headache Verified 05/30/22 16:26 nausea oxycodone AdvReac Intermediate NAUSEA/VOMI Verified 05/30/22 16:26 TING OPIATE AGONISTS (NARCOTICS) AdvReac Intermediate NAUSEA/VOMI Uncoded 05/30/22 16:26 TING General Stated Complaint: SOB/SuddenOnset RENEE: 3 Review of Systems Constitutional Constitutional: Denies fatigue, Denies fever(s) and Denies weakness Cardiovascular Cardiovascular: Denies chest pain and Reports dyspnea Respiratory Respiratory: Denies cough and Reports dyspnea Gastrointestinal Gastrointestinal: Denies abdominal pain, Denies nausea and Denies vomiting Musculoskeletal Musculoskeletal: Denies back pain Integumentary/Breasts Skin/Breast: Denies rash Neurologic Neurologic: Denies weakness Endocrine Endocrine: Denies fatigue Hematologic/Lymphatic Hematologic/Lymphatic: Denies easy bleeding and Denies easy bruising PFSH All Active Problems (Updated 05/30/22 @ 18:29 by LESLEY Joiner) Depression (Chronic) Anxiety (Acute 01/11/15) Sexual dysfunction (Acute) Essential hypertension (Acute) Right rotator cuff tear (Acute) GERD (gastroesophageal reflux disease) (Chronic) Screening for colon cancer (Acute) Dyspnea (Acute) Elevated hemidiaphragm (Acute) Medical History Adult acne COVID-19 02/2021- URI with loss of tast/smell-resolved, breakthrough infection Hypertension Surgical History History of carpal tunnel surgery 2019, bilat. History of esophagogastroduodenoscopy (EGD) 04/2022 Hx of colonoscopy 04/2022 KNEE SURGERY 1994- TORN MINISCUS, left Family History Mother No problems noted. Father Essential hypertension Depression Family History Neoplasm Social History Smoking/Tobacco Use Status: Never Second Hand Exposure: No Smoking risk assessment performed?: Yes Alcohol Intake: never Drug use: Never Substance use type: does not use Current gender identity: male Do you feel safe at home: Yes Do you feel safe in your relationship?: Yes Additional Social history: unable to assess privately Exam Const General: cooperative, healthy appearing, comfortable and no acute distress Orientation: alert, awake and oriented x3 HENMT Head: normal to inspection, normocephalic and atraumatic Face and sinus: normal facial exam Mouth: moist mucous membranes Eyes General: appearance normal, both eyes and all related structures Conjunctivae: conjunctivae normal Neck Neck: normal visual inspection, full ROM, no meningeal signs, trachea midline and supple Chest Chest: normal inspection of the chest and normal palpation of entire chest wall Resp Effort & Inspection: normal respiratory effort and able to speak in complete sentences Auscultation: diminished lung sounds on the right in the lower lung tellez Cardio Rate: regular rate Rhythm: regular rhythm GI Inspection: normal to inspection Palpation: soft and nontender Skin General skin exam: no rashes or lesions noted Neuro General: patient alert, patient awake, moves all extremities and no focal motor deficits Cognition: normal cognition Sensory Exam: no sensory deficits noted Extrem General: capillary refill normal Other: Left upper extremity and bilateral lower extremities unremarkable. No pedal edema or calf tenderness. Right arm is in a sling and surgical dressing, this was not removed. The patient has a normal radial pulse. Patient is able to wiggle his fingers and has normal capillary refill, sensation intact. Psych Appearance: grossly normal Mental Status: mental status grossly normal Course Vital Signs Vital signs: Vital Signs Temperature 37.1 C 05/30/22 16:19 Pulse 69 05/30/22 16:19 Respiratory Rate 16 05/30/22 16:19 Blood Pressure 137/91 H 05/30/22 16:19 Pulse Oximetry 95 05/30/22 16:19 Temperature 37.1 C 05/30/22 16:19 Temperature Source Oral 05/30/22 16:19 Pulse 69 05/30/22 16:19 Respiratory Rate 15 05/30/22 16:23 Respiratory Effort Non-Labored, Short of Breath 05/30/22 16:23 Respiratory Depth Normal 05/30/22 16:23 Respiratory Pattern Normal 05/30/22 16:23 Blood Pressure 137/91 H 05/30/22 16:19 Blood Pressure Position Sitting 05/30/22 16:19 Pulse Oximetry 95 05/30/22 16:19 Oxygen Delivery Method Room Air 05/30/22 16:19 Oxygen Flow Rate 0 05/30/22 16:19 Pain Level 0 05/30/22 16:23
[2022-05-30 17:22] LABS: ALT 56 U/L (16-63); AST 34 U/L (15-37); Albumin 3.6 g/dL (3.4-5.0); Alkaline Phosphatase 70 U/L (46-116); Anion Gap 8.1 mmol/L (3-11); BUN 12 mg/dL (7-18); Bilirubin, Total 0.4 mg/dL (0.2-1.0); CO2 28.9 mmol/L (21.0-32.0); Calcium 8.8 mg/dL (8.5-10.1); Chloride 105 mmol/L (98-107); Glucose 90 mg/dL (74-106); Potassium 4.3 mmol/L (3.5-5.1); Sodium 142 mmol/L (136-145); Total Protein 7.1 g/dL (6.4-8.2); Troponin I < 50 ng/L (<or=60)
[2022-05-30 17:24] LABS: PTT Activated 25.9 sec (21.5-31.9)
--- NOTE | 2022-05-30 17:35 | DI.RAD_ITS ---
Exam(s) XR PORTABLE CHEST AP EXAM: XR PORTABLE CHEST AP CLINICAL HISTORY: sob TECHNIQUE: 2D digital imaging was performed of the chest. One image was obtained. An AP view was ob tained. COMPARISON: CR CHEST 2 VIEWS PA,LAT from 06/08/2013 CR XR shoulder LT complete 2+V from 05/07/2018 FINDINGS: MEDIASTINUM: Normal. HEART: Normal. PULMONARY VASCULATURE: Normal. LUNGS: Clear. PLEURAL SPACE: No pleural effusion or pneumothorax. BONE:Within normal limits for the patient's age. OTHER FINDINGS:There is marked elevation of the right hemidiaphragm. Causing a decrease in the volum e of the right hemithorax. IMPRESSION: 1. No acute pulmonary findings. 2. Prominent elevation of the right hemidiaphragm. This causes decreased volume in the right hemitho rax. Correlate with clinical findings to evaluate for possible diaphragmatic herniation/weakness. DATA REPOSITORY: RADIATION DOSE DELIVERED:
[2022-05-30 17:39] LABS: Magnesium 1.8 mg/dL (1.8-2.4); NT-proBNP 241 pg/mL (<300)
[2022-05-30 17:43] LABS: INR 0.9 (0.9-1.1); Prothrombin Time 9.4 sec (9.3-11.0)
[2022-05-30 17:46] LABS: D-Dimer 424 ng/mlFEU (<500)
[2022-05-30 17:53] LABS: COVID-19 PCR Negative (Negative); Influenza A PCR Negative (Negative); Influenza B PCR Negative (Negative); RSV PCR Negative (Negative)
[2022-05-30 18:03] LABS: Source Nasopharynx
--- NOTE | 2022-05-30 18:10 | DI.VRAD_ITS ---
PROCEDURE INFORMATION: Exam: XR Chest Exam date and time: 05/30/2022 5:13 PM Age: 46 years old Clinical indication: Shortness of breath TECHNIQUE: Imaging protocol: Radiologic exam of the chest. Views: 1 view. COMPARISON: MRI, UPPER EXT, JOINT S/ CONTRA 07/06/2021 3:30 PM FINDINGS: Lungs: No evidence of significant consolidation. Pleural spaces: No pleural effusion seen. No pneumothorax. Heart/Mediastinum: No cardiomegaly. Diaphragm: There is prominent elevation of the right hemidiaphragm, decreasing the right lung volume. Bones/joints: Unremarkable. IMPRESSION: Prominent elevation of the right hemidiaphragm, which is nonspecific, but causes decreased right lung volume. Correlate with clinical findings to evaluate for possible diaphragmatic herniation/weakness. Dictated and Authenticated by: Shannon Savage MD. Ordering:JERSON Schmitt MD
--- NOTE | 2022-06-02 12:43 | PDOC.ANES ---
Date of service: 06/02/22 Time of Service: 12:43 Anesthesia Note Report Anesthesia Note: Attempted to follow up with Philippe today to see how he is feeling both in regards to block cessation and return of full and normal pulmonary status. Unable to reach him via his cellphone, no other personal phone number noted under the administrative tab. Will try again tomorrow, Saturday 06/03.
== END 2022-05-30 18:41 | disposition home or self-care (01) ==
PROVIDERS: Emergency Provider Physician Assistant; PCP Nurse Practitioner Family
DX: R06.00 Dyspnea, unspecified (principal); J98.6 Disorders of diaphragm; I10 Essential (primary) hypertension; F32.A Depression, unspecified; Z86.16 Personal history of COVID-19; Z20.822 Contact with and (suspected) exposure to COVID-19
CPT/HCPCS: 36415; 80053; 87637; 93005; 99284; 71045; 83735; 83880; 84484; 85025; 85379; 85610; 85730; 93010

== ENCOUNTER 2022-08-19 15:42 | Outpatient (CLI) | payer OTHER, SELFPAY ==
--- NOTE | 2022-08-19 15:41 | DI.RAD_ITS ---
Exam(s) XR SHOULDER RT COMPLETE 2+V EXAM: XR SHOULDER RT COMPLETE 2+V CLINICAL HISTORY: pain after R RTC repair. TECHNIQUE: 2D digital imaging was performed of the right shoulder. Three images were obtained. AP, Grashey, Y-view and axillary views were obtained. COMPARISON: CR XR SHOULDER RT COMPLETE 2+V from 07/02/2021 FINDINGS: BONES: No acute fracture is present. No bony destructive lesion is seen. JOINTS: No dislocation present. There is again seen minimal degenerative change at the acromioclavicu lar joint. SOFT TISSUE: Normal. IMPRESSION: No acute abnormality. DATA REPOSITORY: RADIATION DOSE DELIVERED:
== END 2022-08-19 15:43 | disposition home or self-care (01) ==
LOC: DIORS 15:42
PROVIDERS: PCP Nurse Practitioner Family; Visit Provider Student in an Organized Health Care Education/Training Program
DX: Z98.890 Other specified postprocedural states (principal)
CPT/HCPCS: 73030

== ENCOUNTER 2022-09-17 03:05 | Outpatient (CLI) | payer OTHER, SELFPAY ==
--- NOTE | 2022-09-17 08:00 | DI.MRI_ITS ---
Exam(s) MR UPPER JOINT RT WO EXAM: MR UPPER JOINT RT WO CLINICAL HISTORY: PAIN, INJURY,rt rotator cuff tear,s/p arthroscopy,m75.101,z98.890 TECHNIQUE: Multiplanar multisequence MRI of the shoulder was performed. COMPARISON: MR MRI, UPPER EXT, JOINT S/ CONTRA from 07/06/2021 CR XR SHOULDER RT COMPLETE 2+V from 08/19/2022 FINDINGS: Compared to the outside MRI 07/06/2021 there has been interval surgery. There are multiple (5) faste ner channels in the humeral head as well as what appears to be biceps tenodesis fastener in the proxi mal diaphysis of the humerus. MARROW:There is significant marrow edema in the humeral head around the fastener channels and through out the greater tuberosity although there is also some marrow signal abnormality medially in the cody ral head related to the AP orientated screw. There is no confluent hypointense T1 signal to suggest osteomyelitis. ROTATOR CUFF MECHANISM: AC JOINT/ACROMIUM: Minimal degenerative changes in the AC joint. No prominent impingement at this le josefina.. There is no evidence of os acromiale. Supraspinatus: There is significant signal abnormality consistent with full-thickness tear of the sup raspinatus repair. This is at and above the greater tuberosity foot pad. There is full-thickness si gnal abnormality for a width of 2.4 cm in the coronal plane. AP gap is 2 cm. There is a sliver of fl uid in the subacromial sub-subdeltoid bursa region. Infraspinatus: Some insertional increased signal but otherwise intact. No atrophy. Teres Minor: Intact. No evidence of tear nor muscle atrophy. Subscapularis/anterior cuff: Some signal abnormality in the superior fibers. No full-thickness tear. BICEPS TENDON: Biceps tenodesis. LABRUM: There is now decreased size as well as some signal abnormality in the superior labrum, proba emilee related to intervals but also may represent element of superior labral tearing. The posterior la darius appears intact as does the inferior labrum. No evidence of paralabral cyst. GLENOHUMERAL JOINT: No joint effusion nor obvious loose intra-articular bodies. No chondral defects. No osteophytes. No degenerative subarticular cysts in the osseous glenoid. QUADRILATERAL SPACE: No evidence of mass in the region of the axillary nerve and dorsal circumflex hu meral vessels. Visualized triceps muscle at this level appears unremarkable. IMPRESSION: 1. Compared to the prior outside study there has been interval rotator cuff surgery and biceps tenode sis.. However, there appears to be retear of the supraspinatus as described above. 2. Also some signal abnormality but no high-grade full-thickness tear tear in the anterior cuff-subscapu christian. 3. There is bone edema in the humeral head surrounding the 5 surgically created channels as fastener devices. There is, however, no confluent hypointense T1 weighted signal to suggest the presence of os teomyelitis. 4. There is no prominent glenohumeral joint effusion. No obvious loose intra-articular bodies. DATA REPOSITORY:
== END 2022-09-17 03:25 ==
LOC: DI 03:05
PROVIDERS: PCP Nurse Practitioner Family; Visit Provider Student in an Organized Health Care Education/Training Program
DX: Z98.890 Other specified postprocedural states; S43.431D Superior glenoid labrum lesion of right shoulder, subsequent encounter; M89.9 Disorder of bone, unspecified
CPT/HCPCS: 73221

== ENCOUNTER → 2022-12-13 00:19 | Outpatient (CLI) | payer OTHER, SELFPAY ==
--- NOTE | 2022-12-13 16:16 | DI.RAD_ITS ---
Exam(s) XR TOE RT GREAT EXAM: XR TOE RT GREAT CLINICAL HISTORY: Chronic pain, no trauma,toe pain, m79.676. TECHNIQUE: 2D digital imaging was performed. COMPARISON: No exams were available for comparison FINDINGS: 3 views No evidence of acute fracture or diastasis of the Lisfranc joint. Mild degenerative changes at the m etatarsophalangeal joint of the great toe. There are no erosions. No radiopaque foreign body. No r adiographic evidence of osteomyelitis. Interphalangeal joint of the great toe and 1st tarsometatarsa l joints appear unremarkable. Mild hallux valgus. Bone density normal. No osseous lesions. IMPRESSION: Mild degenerative changes in the great toe metatarsophalangeal joint. No erosions. DATA REPOSITORY: RADIATION DOSE DELIVERED:
== END ==
PROVIDERS: PCP Nurse Practitioner Family; Visit Provider Nurse Practitioner Family
DX: M19.071 Primary osteoarthritis, right ankle and foot
CPT/HCPCS: 73660

== ENCOUNTER 2023-01-16 17:05 | Emergency (ER) | payer OTHER, SELFPAY ==
[2023-01-16 17:10] VITALS: BP 140/91; PULSE 87; RESP 20; TEMP 37.2; O2SAT 97
--- NOTE | 2023-01-16 17:15 | DI.RAD_ITS ---
Exam(s) XR HAND RT COMPLETE EXAM: XR HAND RT COMPLETE CLINICAL HISTORY: right thumb and carpal pain. TECHNIQUE: 2D digital imaging was performed of the right hand. Three images were obtained. AP, late ral and oblique views were obtained. COMPARISON: No exams were available for comparison FINDINGS: BONES: No acute fracture is present. No bony destructive lesion is seen. JOINTS: No dislocation present. There are mild degenerative changes seen at the interphalangeal joint of the thumb. SOFT TISSUE: Normal. IMPRESSION: No acute fracture or dislocation. DATA REPOSITORY: RADIATION DOSE DELIVERED:
[2023-01-16 18:12] VITALS: BP 140/91; PULSE 87; RESP 20; TEMP 37.2; O2SAT 97
--- NOTE | 2023-01-16 21:28 | ED.GENADUL_ITS ---
Discharge Plan Disposition Patient Disposition: Home Discharge Details Clinical Impression: Hand strain Primary Care Provider: Emilio Meza ED Provider: Gita Louis Home Meds and New Rx's Prescriptions: Continued citalopram 40 mg tablet 40 mg PO DAILY Qty: 90 3RF lisinopril 30 mg tablet 30 mg PO DAILY Qty: 90 3RF venlafaxine 75 mg capsule,extended release 24hr 75 mg PO QHS Qty: 90 3RF clindamycin HCl 300 mg capsule 300 mg PO TID Qty: 30 0RF Patient Comments: rx finished hydrochlorothiazide 12.5 mg tablet 12.5 mg PO DAILY Qty: 90 3RF omeprazole magnesium 20 mg tablet,delayed release (DR/EC) 20 mg PO DAILY Qty: 90 3RF Discharge Instructions Instructions: Muscle Strain (ED) Additional Instructions: Use your splint for the next several days Take Tylenol 650 as needed for discomfort, keep the wound on your hand clean and dry Follow-up for your tetanus next year Should you have persistent pain greater than 1 week, recommend reassessment by your primary care physician Referrals: Emilio Meza, SENIOR ACCOUNTING MANAGER [Primary Care Provider] - Discharge Data Discharge Date/Time-TO BE ENTERED AT DEPARTURE: 01/16/23 18:22 Medical Decision Making 47-year-old male presenting with left hand injury, x-ray was ordered for further evaluation, x-ray of left hand does not show evidence of acute abnormality per radiology interpretation my review Placed in thumb spica splint Tetanus reportedly up-to-date, neurovascularly intact, no tenderness to left wrist Repeat imaging in 1 week with persistent pain HPI General Date/Time Provider Initiated Documentation: 01/16/23 17:29 . HPI Narrative: This 47-year-old male presents with report of right hand injury. He crushed his hand in between a log piece of steel. This happened just prior to arrival. Presents with abrasion and pain. This happened today. Neurovascularly intact Related Data Home Medications Medication Instructions Recorded Confirmed hydrochlorothiazide 12.5 mg tablet 12.5 mg PO DAILY #90 tabs 06/03/22 01/16/23 omeprazole magnesium 20 mg 20 mg PO DAILY #90 tabs 11/11/22 01/16/23 tablet,delayed release citalopram 40 mg tablet 40 mg PO DAILY #90 tabs 12/09/22 01/16/23 clindamycin HCl 300 mg capsule 300 mg PO TID #30 caps 12/09/22 12/16/22 lisinopril 30 mg tablet 30 mg PO DAILY #90 tabs 12/09/22 01/16/23 venlafaxine 75 mg capsule,extended 75 mg PO QHS #90 caps 12/09/22 01/16/23 release 24 hr Previous Rx's Medication Instructions Recorded hydrochlorothiazide 12.5 mg tablet 12.5 mg PO DAILY #90 tabs 06/03/22 omeprazole magnesium 20 mg 20 mg PO DAILY #90 tabs 11/11/22 tablet,delayed release citalopram 40 mg tablet 40 mg PO DAILY #90 tabs 12/09/22 clindamycin HCl 300 mg capsule 300 mg PO TID #30 caps 12/09/22 lisinopril 30 mg tablet 30 mg PO DAILY #90 tabs 12/09/22 venlafaxine 75 mg capsule,extended 75 mg PO QHS #90 caps 12/09/22 release 24 hr Allergies Allergy/AdvReac Type Severity Reaction Status Date / Time bupropion [From Wellbutrin] AdvReac Intermediate headache Verified 01/16/23 17:16 nausea oxycodone AdvReac Intermediate NAUSEA/VOMI Verified 01/16/23 17:16 TING OPIATE AGONISTS (NARCOTICS) AdvReac Intermediate NAUSEA/VOMI Uncoded 01/16/23 17:16 TING General Stated Complaint: Orthopedic RENEE: 4 PFSH All Active Problems (Updated 01/16/23 @ 18:04 by LESLEY Blankenship) Hand strain (Acute) Seborrheic dermatitis (Acute) Toe pain (Acute) Depression (Chronic) Anxiety (Acute 01/11/15) Essential hypertension (Acute) GERD (gastroesophageal reflux disease) (Chronic) Medical History (Updated 01/16/23 @ 18:04 by LESLEY Blankenship) Adult acne COVID-19 02/2021- URI with loss of tast/smell-resolved, breakthrough infection Hypertension Surgical History (Updated 12/09/22 @ 13:57 by Emilio Meza NP) History of carpal tunnel surgery 2019, bilat. History of esophagogastroduodenoscopy (EGD) 04/2022 Hx of colonoscopy 04/2022 KNEE SURGERY 1994- TORN MINISCUS, left Status post arthroscopy of right shoulder (05/28/22) Repair of subscapularis and supraspinatus, biceps tenodesis, extensive debridement: 05/28/2022 Family History Mother No problems noted. Father Essential hypertension Depression Family History Neoplasm Social History Smoking/Tobacco Use Status: Never Second Hand Exposure: No Smoking risk assessment performed?: Yes Alcohol Intake: never Drug use: Never Substance use type: does not use Housing: house Current gender identity: male Do you feel safe at home: Yes Do you feel safe in your relationship?: Yes Additional Social history: unable to assess privately Course Vital Signs Vital signs: Vital Signs Temperature 37.2 C 01/16/23 17:10 Pulse 87 01/16/23 17:10 Respiratory Rate 20 01/16/23 17:10 Blood Pressure 140/91 H 01/16/23 17:10 Pulse Oximetry 97 01/16/23 17:10 Temperature 37.2 C 01/16/23 18:12 Temperature Source Skin 01/16/23 17:10 Pulse 87 01/16/23 18:12 Respiratory Rate 20 01/16/23 18:12 Respiratory Effort Normal 01/16/23 17:15 Blood Pressure 140/91 H 01/16/23 18:12 Blood Pressure Position Sitting 01/16/23 17:10 Pulse Oximetry 97 01/16/23 18:12 Oxygen Delivery Method Room Air 01/16/23 17:10 Oxygen Flow Rate 0 01/16/23 17:10 Pain Level 5 01/16/23 17:10
== END 2023-01-16 18:22 | disposition home or self-care (01) ==
PROVIDERS: Emergency Provider Physician Assistant; PCP Nurse Practitioner Family
DX: W22.8XXA Striking against or struck by other objects, initial encounter; S66.911A Strain of unspecified muscle, fascia and tendon at wrist and hand level, right hand, initial encounter
CPT/HCPCS: 29125; 99283; 73130

== ENCOUNTER 2023-12-26 01:08 | Outpatient (CLI) | payer OTHER, SELFPAY ==
[2023-12-26 08:09] LABS: CREATININE 1.1 mg/dL (0.70-1.30); Calculated LDL 129 mg/dL (<100); Cholesterol 216 mg/dL (<200); Estimated GFR 83.32 (mL/min/1.73m2); HDL Cholesterol 38 mg/dL (40-60); Potassium 4.2 mmol/L (3.5-5.1); Triglyceride 247 mg/dL (<150)
[2023-12-26 08:16] LABS: Hemoglobin A1C 5.5 % (<5.7)
[2023-12-29 12:22] LABS: Lyme Ab w Rflx to Lyme Confirm Negative (Negative)
[2023-12-30 01:33] LABS: Anaplasma phagocytophilum Negative (Negative); B. miyamotoi PCR Negative (Negative); Babesia divergens/MO-1 Negative (Negative); Babesia duncani Negative (Negative); Babesia microti Negative (Negative); Ehrlichia chaffeensis Negative (Negative); Ehrlichia ewingii/canis Negative (Negative); Ehrlichia muris eauclairensis Negative (Negative)
== END 2023-12-26 01:09 | disposition home or self-care (01) ==
PROVIDERS: PCP Nurse Practitioner Family; Visit Provider Nurse Practitioner Family
DX: I10 Essential (primary) hypertension (principal); W57.XXXA Bitten or stung by nonvenomous insect and other nonvenomous arthropods, initial encounter; Z13.220 Encounter for screening for lipoid disorders; Z13.1 Encounter for screening for diabetes mellitus
CPT/HCPCS: 36415; 80061; 87798; 82565; 83036; 84132; 86618

== ENCOUNTER 2024-03-31 08:25 | Outpatient (REF) | payer OTHER, SELFPAY ==
--- NOTE | 2024-03-31 07:48 | SKI_PTH ---
PATIENT: Philippe Senior LOC: [facility] U#:[id number] AGE/SX: 48/M ROOM: RE03/31/[address]: Orlando Camp MD : 1975 BED: DIS: 03/31/2024 SPEC #: [id number] RECD: 03/31/24 12:43 STATUS: JASMYN REQ #: [id number] VIVIEN: 03/31/24 07:[address]: Orlando Camp DEPT: Surgical Specimen RECD BY: Gita Vega ENTERED: 03/31/24 12:43 SP TYPE: TONIO MARTÍNEZ DR: Emilio Meza, ROCIO Tissues: 1 - SKIN BIOPSY(SHAVE/PUNCH) Procedures: SKIN LEVEL 4 Comments: [id number]
== END 2024-03-31 08:26 | disposition home or self-care (01) ==
LOC: LBN 08:25
PROVIDERS: PCP Nurse Practitioner Family; Visit Provider Otolaryngology
DX: L98.9 Disorder of the skin and subcutaneous tissue, unspecified (principal); C44.91 Basal cell carcinoma of skin, unspecified
CPT/HCPCS: 88305

== ENCOUNTER 2024-06-30 03:54 | Outpatient (CLI) | payer OTHER, SELFPAY ==
--- NOTE | 2024-06-30 07:15 | DI.RAD_ITS ---
Exam(s) XR FOOT RT COMPLETE EXAM: XR FOOT RT COMPLETE CLINICAL HISTORY: Rt grt toe injury/pain,M79.674. TECHNIQUE: 2D digital imaging was performed. COMPARISON: CR XR TOE RT GREAT from 12/13/2022 FINDINGS: 3 views No evidence of fracture or diastasis of the Lisfranc joint. There are degenerative changes again not ed in the great toe metatarsophalangeal joint. Although there does not appear to be prominent joint space narrowing, there is a prominent dorsal bony excrescence/osteophyte off the dorsal-lateral aspec t of the great toe metatarsal head, best seen on the lateral view and appearing somewhat more promine nt than in November 2022. There is no associated hallux valgus. There are no degenerative subarticula r cysts at this articulation. The other MTP joints appear unremarkable. No pes planus. Other articulations of the foot appear unremarkable. IMPRESSION: Mild progression of degenerative changes in the great toe metatarsophalangeal joint when compared to the November 2022 DATA REPOSITORY: RADIATION DOSE DELIVERED:
== END 2024-06-30 04:14 ==
PROVIDERS: PCP Nurse Practitioner Family; Visit Provider Podiatrist
DX: M79.674 Pain in right toe(s) (principal)
CPT/HCPCS: 73630

== ENCOUNTER 2025-02-07 14:51 | Outpatient (CLI) | payer OTHER, SELFPAY ==
[2025-02-07 16:27] LABS: Hemoglobin A1C 5.7 % (<5.7)
[2025-02-07 16:49] LABS: Anion Gap 9.9 mmol/L (3-11); BUN 14 mg/dL (7-18); CO2 29.1 mmol/L (21.0-32.0); Calcium 9.3 mg/dL (8.5-10.1); Calculated LDL 111 mg/dL (<100); Chloride 100 mmol/L (98-107); Cholesterol 186 mg/dL (<200); Estimated GFR 82.29 (mL/min/1.73m2); Glucose 103 mg/dL (74-106); HDL Cholesterol 33 mg/dL (>or=40); Potassium 3.9 mmol/L (3.5-5.1); Sodium 139 mmol/L (136-145); Triglyceride 214 mg/dL (<150)
[2025-02-17 21:26] LABS: Testosterone, Free 56.2 pg/mL (35.0-155.0)
== END 2025-02-07 14:52 | disposition home or self-care (01) ==
LOC: LOS 14:52
PROVIDERS: PCP Nurse Practitioner Family; Visit Provider Nurse Practitioner Family
DX: E29.1 Testicular hypofunction (principal); Z13.220 Encounter for screening for lipoid disorders; Z13.1 Encounter for screening for diabetes mellitus; I10 Essential (primary) hypertension
CPT/HCPCS: 36415; 80048; 80061; 84402; 84403; 83036

== ENCOUNTER → 2025-03-10 09:42 | Outpatient (CLI) | payer OTHER, SELFPAY ==
--- NOTE | 2025-03-10 15:45 | DI.MRI_ITS ---
Exam(s) MR LUMBAR SPINE WO EXAM: MR LUMBAR SPINE WO CLINICAL HISTORY: Worsening low back pain/failing chiropractics,radiculopathy,radial groin. TECHNIQUE: Multiplanar multisequence MRI of the Lumbar spine was performed. COMPARISON: There are no plain films available time this MRI interpretation. FINDINGS: Five lumbar vertebrae are presumed. Conus medullaris is at normal level. There is no evidence of conus mass nor subjacent clumping of intrathecal nerve roots to suggest arachnoiditis. The distal thecal sac appears unremarkable.There is no evidence of Tarlov intrasacral cysts nor other significant findings within the sacral canal Bones:There are no fractures nor ominous osseous lesions in the lumbar vertebral bodies and visualized sacrum. With respect to the individual levels... T12-L1: Unremarkable L1-2: Normal disc height and signal. No disc herniation nor central canal stenosis.No foraminal stenosis L2-3: Normal disc height. No disc herniation nor central canal stenosis.No foraminal stenosis.No facet arthropathy. L3-4: Normal disc height. No disc herniation or central canal stenosis.No foraminal stenosis.No facet arthropathy. L4-5: Normal disc height. None slightly decreased disc hydration signal. Posteriorly there is mild symmetrical annular bulging without a dominant disc herniation. Central canal dimensions are lower normal. There are no obvious degenerative changes in the facet joints. There is no evidence of foraminal stenosis. L5-S1: Normal disc height and signal. No disc herniation. Central canal dimensions are lower normal. No significant foraminal stenosis. Moderate bilateral facet arthropathy. There is a rudimentary disc space at S1-S2 which appears unremarkable. Soft tissues: paraspinal soft tissues appear unremarkable. IMPRESSION: 1. At L4-5 level there is some mild symmetrical annular bulging without a dominant disc herniation.. The central canal dimensions are lower normal at this level. No obvious facet arthropathy nor foraminal stenosis at this level. 2. Other levels appear unremarkable. DATA REPOSITORY:
== END ==
LOC: DI 09:42
PROVIDERS: PCP Nurse Practitioner Family; Visit Provider Physician Assistant
DX: M54.50 Low back pain, unspecified (principal); G89.29 Other chronic pain
CPT/HCPCS: 72148

== ENCOUNTER → 2025-04-13 00:19 | Outpatient (CLI) | payer OTHER, SELFPAY ==
--- NOTE | 2025-04-13 12:00 | DI.US_ITS ---
Exam(s) US SCROTUM EXAM: US SCROTUM CLINICAL HISTORY: Pain in testicles N50.811 N50.812 TECHNIQUE: Ultrasound of the testes performed using grayscale, color, and Doppler imaging. COMPARISON: US POCUS EXAM from 05/28/2022 FINDINGS: RIGHT HEMISCROTUM: The right testicle exhibits normal size and echo architecture with no evidence of intratesticular mass. Vascular flow was demonstrated within the right testicle, including arterial waveforms. The epididymis appears unremarkable. There are no epididymal head cysts. There is a small amount of right hydrocele. No varicocele. LEFT HEMISCROTUM: The left testicle exhibits normal size and echo architecture with no evidence of intratesticular mass. Vascular flow is demonstrated within the left testicle, including arterial waveforms. The epididymis appears unremarkable. There are no epididymal head cysts. There is also a small left hydrocele. No varicocele. IMPRESSION: 1. No evidence of testicular mass nor testicular torsion. 2. Small bilateral hydroceles. 3. No varicoceles evident DATA REPOSITORY:
== END ==
LOC: DI 00:19
PROVIDERS: PCP Nurse Practitioner Family; Visit Provider Nurse Practitioner Family
DX: E29.1 Testicular hypofunction (principal); N50.811 Right testicular pain; N50.812 Left testicular pain; N43.3 Hydrocele, unspecified
CPT/HCPCS: 36415; 84402; 84403; 76870